=== PATIENT | female | born 1965 | race Caucasian/White ===

== ENCOUNTER 2023-09-18 06:10 | Day surgery (SDC) | payer MEDICARE, OTHER, SELFPAY ==
[2023-09-14 15:55] VITALS: BMI 49.1
[2023-09-18] VITALS (8 sets, daily range): BP systolic 124–165; BP diastolic 53–81; BMI 49.1
[2023-09-18 06:58] LABS: Glucose - Point of Care 163 mg/dl (70-99)
[2023-09-18 08:48] LABS: Glucose - Point of Care 184 mg/dl (70-99)
== END 2023-09-18 10:34 ==
LOC: SDS 06:10
PROVIDERS: ATTENDING PHYSICIAN Urology
DX: N31.9 Neuromuscular dysfunction of bladder, unspecified (principal); R33.9 Retention of urine, unspecified
CPT/HCPCS: 51040; 82962

== ENCOUNTER 2024-07-26 17:44 | Inpatient (IN) | payer MEDICARE, OTHER, SELFPAY ==
[2024-07-26] VITALS (21 sets, daily range): BP systolic 90–144; BP diastolic 37–73; BMI 50.7
[2024-07-26 14:02] LABS: Hematocrit 22.4 % (37.0-47.0); Hemoglobin 7.2 g/dL (12.0-16.0); Mean Corp Hgb Conc. 32.1 g/dL (33.0-37.0); Mean Corpuscular Hgb 26.9 pg (27.0-31.0); Mean Corpuscular Volume 83.6 fL (81.0-99.0); Platelet Count 170 10^3/uL (130-400); Red Blood Cell Count 2.68 10^6/uL (4.20-5.40); White Blood Cell Count 10.1 10^3/uL (4.8-10.8)
[2024-07-26 14:12] LABS: ALT (SGPT) 27 U/L (0-35); AST (SGOT) 65 U/L (14-36); Albumin 2.7 g/dl (3.5-5.0); Alkaline Phosphatase 190 U/L (38-126); Blood Urea Nitrogen 68 mg/dl (7-17); Calcium 8.3 mg/dl (8.4-10.2); Carbon Dioxide 23 mmol/L (22-30); Chloride 101 mmol/L (98-107); Estimated Creatinine Clearance 25 ml/min; Glucose 97 mg/dl (70-99); Lactic Acid 0.7 mmol/L (0.7-2.0); Sodium 134 mmol/L (135-145); Total Bilirubin 0.7 mg/dl (0.2-1.3); Total Protein 5.9 g/dl (6.3-8.2); eGFR 13.95
[2024-07-26 14:17] LABS: % Basophils 0.3 % (0-2); % Eosinophils 0.7 % (0-6); % Immature Granulocytes 0.4 % (0-0.5); % Lymphocytes 9.3 % (20.5-51.1); % Monocytes 8.8 % (1.7-9.3); % Neutrophils 80.5 % (42.2-75.2); Absolute Eosinophils 0.1 10^3/uL (0-0.7); Absolute Lymphocytes 0.9 10^3/uL (1.2-3.4); Absolute Monocytes 0.9 10^3/uL (0.1-0.6); Absolute Neutrophils 8.2 10^3/uL (1.4-6.5); Nucleated Red Blood Cells % 0 %
[2024-07-26] MEDS: NSS 1000 IV ×2 (15:12→18:54)
[2024-07-26] MEDS: MAXIPIME 2000 MG IV (15:15)
--- NOTE | 2024-07-26 15:32 | ED.GENMED ---
History of Present Illness
General
Chief Complaint: Skin Surface Trauma
Time Seen by Provider: 07/26/24 13:41
History of Present Illness
History of Present Illness:
58-year-old female with history of neurogenic bladder status post suprapubic, chronic CHF, stage III CKD, GERD, conversion disorder, morbid obesity, type 2 diabetes/insulin-dependent, and status post left BKA presents to the emergency department for
evaluation of hypotension and fatigue. Coming from [facility]. Patient offers no complaints on arrival, she is sleeping but easily aroused and fully oriented
Review of Systems
Review of Systems
Allergies reviewed?: Yes
All Other Systems: ROS reviewed and negative except as documented in HPI and ROS
Phy Exam
Physical Exam
Physical Exam:
GEN: Diaphoretic, ill-appearing but no acute distress
Eyes: PERRLA, EOMs intact, no scleral icterus
HENT: NCAT, oral mucosa dry
Lungs: CTAB, no wheezes, rales, rhonchi, normal chest wall excursion
Cardiac: RRR, no M/R/G, no peripheral edema. Radial pulses 2+ bilat
Abdomen: Morbid obesity limits exam, generally soft abdomen, suprapubic in place
Rectal: Scant brown stool in the rectal vault, heme-negative
Neuro: AO x 3, moves all extremities freely
MSK: No gross deformity or ecchymosis. No edema. No digital clubbing. Status post left BKA. Massive edema and erythema with warmth to the right lower extremity predominantly lower leg but extends toward the medial thigh
Skin: No rashes, petechiae. Diaphoretic
Psych: Calm, cooperative, proper hygiene
Sepsis
Sepsis Screening
Sepsis Assessment: Severe Sepsis
Sepsis Screening: Hypotension and ARF-Creatinine >2.0
Sepsis Screen
Sepsis Screen: Severe Sepsis
Date: 07/26/24
Time: 14:45
Course
Orders/Labs/Results
Orders:
Orders
07/26/24 13:41
Chauhan Placement- Treatment ONCE
Reason for insertion: Chronic Chauhan on Admit
0.9% Sodium Chloride 1000 ml [Nss] 1,000 ml IV BOLUS
Cefepime HCl [Maxipime] 2,000 mg IV NOW STA
07/26/24 13:42
Urinalysis Reflex To Culture Urgent
07/26/24 13:50
Complete Blood Count/With Diff Urgent
Comprehensive Metabolic Panel Urgent
Lactic Acid Q4H
Comment: CANCEL 2nd LACTIC ACID IF 1st LACTIC ACID IS LESS THAN 2
Blood Culture Q30M
SHAISTA Source: Blood/Venous
Specimen Description:
07/26/24 13:52
Blood Culture Q30M
SHAISTA Source: Blood/Venous
Specimen Description:
07/26/24 14:25
Vancomycin [Vancocin] 2,000 mg 0.9% Sodium Chloride 500 ml [Nss] 500 ml IV NOW
07/26/24 14:53
CR Chest Portable - 1 View Urgent
Comment:
Reason For Exam: sepsis
Reason Study Needs to be Portable: Other
07/26/24 15:10
CT Abd/pel Without Iv Or Oral Urgent
Comment:
Reason For Exam: sepsis, KIRAN, UTI
07/26/24 15:16
Type+Screen Urgent
07/26/24 15:31
ABO2 Urgent
BBK Wristband Number:
Associate notified that ABO2 has been ordered: [id number]
Date: 07/26/24
Time: 15:27
Clinical Practitioner ID: [id number]
Abnormal Lab Results
07/26/24
13:50
RBC 2.68 L 10^6/uL
(4.20-5.40)
Hgb 7.2 L g/dL
(12.0-16.0)
Hct 22.4 L %
(37.0-47.0)
MCH 26.9 L pg
(27.0-31.0)
MCHC 32.1 L g/dL
(33.0-37.0)
RDW 15.0 H %
(11.5-14.5)
Absolute Neuts (auto) 8.2 H 10^3/uL
(1.4-6.5)
Absolute Lymphs (auto) 0.9 L 10^3/uL
(1.2-3.4)
Absolute Monos (auto) 0.9 H 10^3/uL
(0.1-0.6)
Neutrophils % 80.5 H %
(42.2-75.2)
Lymphocytes % 9.3 L %
(20.5-51.1)
Sodium 134 L mmol/L
(135-145)
BUN 68 H mg/dl
(7-17)
Creatinine 3.6 H mg/dL
(0.6-1.0)
Calcium 8.3 L mg/dl
(8.4-10.2)
AST 65 H U/L
(14-36)
Alkaline Phosphatase 190 H U/L
(38-126)
Total Protein 5.9 L g/dl
(6.3-8.2)
Albumin 2.7 L g/dl
(3.5-5.0)
07/26/24 13:50
07/26/24 13:50
Vital Signs
Initial and Last Documented VS:
Initial Vital Signs
Temp Pulse BP Pulse Ox
99.7 F 84 93/49 93
07/26/24 13:40 07/26/24 13:40 07/26/24 13:40 07/26/24 13:40
Last Documented Vital Signs
Temp Pulse Resp BP Pulse Ox
100.1 F 88 22 103/55 97
07/26/24 15:17 07/26/24 14:45 07/26/24 14:45 07/26/24 14:02 07/26/24 14:30
MDM/Problems Addressed
MDM/Problems Addressed:
58-year-old female arrives from nursing facility due to hypotension and diaphoresis. She is found to have a low-grade fever by rectal temp, markedly purulent urine present in suprapubic tube. I attempted to replace the suprapubic at the bedside
however was unable to pass, may be a product of the tract not being overly mature as it was just placed in October. I discussed this with urology who recommended placement of urethral Chauhan for the time being and they will consult inpatient. Chest
x-ray suggestive of a left lower lobe airspace disease, also with signs of massive cellulitis of the right lower extremity, given these findings we will treat with broad-spectrum IV antibiotics. She is also noted to be anemic with heme-negative
stool, not on blood thinners. Unclear baseline as well. Lastly she is noted to have acute renal failure, does have known CKD but again with unknown baseline we will treat this as an KIRAN in the setting of sepsis/hypovolemia, hypotension improved
with IV fluid resuscitation. record request sent to [facility] as patient indicates this is where she has gotten her care previously.
*Critical Care Note
Total Time (30-74mins, 75-104mins- exclusive of procedures): Not Applicable
ED Attending Note
-
Portions of this chart may have been created with voice recognition software.� Occasional wrong word or��sound alike� substitutions may have occurred due to the inherent limitations of voice recognition software.
Discharge Plan
Departure
Patient Disposition: Admit
Date of Disposition: 07/26/24
Time of Disposition: 15:39
Admit to: IMU
Presentation/result/management discussed w/ accepting MD/DO: Hospitalist
Discharge Problem:
Cellulitis of leg, right, Urinary tract infection, Severe sepsis, Acute renal failure, Acute anemia
Prescriptions:
No Action
acetaminophen 325 mg Tablet
650 mg PO Q6HPRN PRN (Reason: mild pain)
atorvastatin 20 mg Tablet
20 mg PO DAILY
cyanocobalamin (vitamin B-12) 100 mcg Tablet
100 mcg PO Q48H
Rx Instructions:
give 1 tab by mouth one time a day every 2 days for supplement
lorazepam [Ativan] 0.5 mg Tablet
0.5 mg PO BID
Rx Instructions:
HOLD FOR SEDATION
bisacodyl [Dulcolax (bisacodyl)] 10 mg Suppository
10 mg NM DAILYPRN PRN (Reason: if n bm aftr mom)
Rx Instructions:
insert 1 suppository rectally as needed for constipation once if MOM ineffective
Fleet Enema 19-7 gram/118 mL Enema
118 ml NM DAILYPRN PRN (Reason: if no bm aftr dulcolax)
Rx Instructions:
Insert 1 each rectally as needed for constipation once if Dulcolax ineffective as per facility policy
albuterol sulfate 90 mcg/actuation Hfa Aerosol Inhaler
1 inh INHALATION R Q4HPRN PRN (Reason: SOB/Wheeze)
duloxetine 30 mg Capsule,Delayed Release(Dr/Ec)
90 mg PO DAILY
Rx Instructions:
30mg+60mg=90mg daily
Fiasp FlexTouch U-100 Insulin 100 unit/mL (3 mL) Insulin Pen
1 sliding scale dose SC AC
Rx Instructions:
if 150-200=2 units call MD if BS less than 60; 201-250=4 units; 251-300=6 units; 301-350=8 units; 351-400=10 units. Call MD if BS more than 400, subcutaneously with meals for DM
lamotrigine 150 mg Tablet
150 mg PO BID
levetiracetam 500 mg Tablet
500 mg PO Q12H
loperamide 2 mg Tablet
2 mg PO Q6HPRN PRN (Reason: diarrhea)
tramadol 50 mg Tablet
50 mg PO Q8HPRN PRN (Reason: Moderate Pain)
Rx Instructions:
Document all NON-Pharmacological Intervention done prior to administration.
guaifenesin [Robitussin Mucus-Chest Congest] 100 mg/5 mL Liquid
200 mg PO Q6HPRN PRN (Reason: congestion;cough)
Rx Instructions:
Give 10ml PO, Q6HPRN for congestion;cough
magnesium hydroxide [Milk of Magnesia] 400 mg/5 mL Suspension
2,400 mg PO DAILYPRN PRN (Reason: if no bm by 3rd day)
Rx Instructions:
1200MG/15ML
ONCE IF NO BM x 3days
ondansetron 4 mg Tablet,Disintegrating
4 mg PO Q6HPRN PRN (Reason: N/V)
alum-mag hydroxide-simeth [Maalox Maximum Strength] 400-400-40 mg/5 mL Suspension
30 ml PO Q8HPRN PRN (Reason: Bloating, Gas)
insulin asp prt-insulin aspart [Novolog Mix 70-30FlexPen U-100] 100 unit/mL (70-30) Insulin Pen
14 unit SC BID
melatonin 10 mg Tablet
10 mg PO HS
Theragen Tablet
1 tab PO DAILY
lisinopril 10 mg Tablet
10 mg PO DAILY
ammonium lactate [AmLactin] 12 % Cream
1 applic TOPICAL HS
gabapentin 100 mg Capsule
200 mg PO TID
Referrals:
UNKNOWN - PT DOES,NOT KNOW [Family Provider] -
Interventions
Interventions:
*Risk Screen - Suicide Last Done: 07/26/24 13:40
*General Assessment Last Done: 07/26/24 13:40
*Neglect/Abuse Screening Last Done: 07/26/24 13:40
*ED- Fall Risk Assessment Last Done: 07/26/24 13:40
*ED COVID-19 Vaccine History Last Done: 07/26/24 14:09
ED-Skin Assessment Last Done: 07/26/24 13:40
Discharge Date and Time
Print Language: VIETNAMESE
[2024-07-26] MEDS: VANCOCIN 540 MG IV (15:39)
--- NOTE | 2024-07-26 16:10 | HPS.HSE ---
Family Physician
-
Family Physician: NOT KNOW UNKNOWN - PT DOES
Chief Complaint
-
Lethargic, cough right lower extremity erythema
History of Present Illness
58-year-old female from [facility] presenting with hypotension and fatigue and dry cough. She is extremely lethargic she falls asleep during exam however she is oriented x 3. She states she has been in [facility]
since April 2021 post left BKA January 2021 at [facility]. She normally goes to [facility] however was brought to [place] today. She has past medical history of DM2 insulin-dependent, status post left BKA January
2020, class III obesity�BMI 50.6 kg, chronic bedbound status uses slide board to transfer to wheelchair occasionally, neurogenic bladder with chronic suprapubic catheter, chronic CHF, ? stage III CKD, GERD, conversion disorder/depression/seizures,
sleep apnea noncompliant CPAP
Medical History
Past Medical History
Past Medical History: Reports Other
Additional Past Medical History:
DM2 insulin-dependent
status post left BKA January 2021
class III obesity�BMI 50.6 kg
chronic bedbound status uses slide board to transfer to wheelchair occasionally
neurogenic bladder with chronic suprapubic catheter
chronic CHF likely diastolic
? stage III CKD
GERD
conversion disorder/depression/seizures
Sleep apnea noncompliant CPAP
Past Surgical History: Reports Other (Unknown surgical history)
Social History
Tobacco: Non-smoker
Alcohol: None
Drug: None
Personal: Single
Living: Snf ([facility])
Employment: Disabled
Family History
Family History: Other (Mother living is at assisted unsure medical problems)
Allergies / Home Medications
Allergies reflects when Allergies were last updated in [facility].
Home Medications with original date entered in [facility]
Allergy/Medication List:
Allergies
Allergy/AdvReac Type Severity Reaction Status Date / Time
No Known Allergies Allergy Verified 09/17/23 08:35
Home Medications
acetaminophen 325 mg tablet 650 mg PO Q6HPRN PRN mild pain 09/17/23
albuterol sulfate 90 mcg/actuation aerosol inhaler 1 inh inhalation R Q4HPRN PRN SOB/Wheeze 09/17/23
aluminum-mag hydroxide-simethicone 400 mg-400 mg-40 mg/5 mL oral susp (Maalox Maximum Strength) 30 ml PO Q8HPRN PRN Bloating, Gas 09/17/23
atorvastatin 20 mg tablet 20 mg PO DAILY HLD 09/17/23
bisacodyl 10 mg rectal suppository (Dulcolax (bisacodyl)) 10 mg NM DAILYPRN PRN if n bm aftr mom 09/17/23
cyanocobalamin (vitamin B-12) 100 mcg tablet 100 mcg PO Q48H Supplement 09/17/23
duloxetine 30 mg capsule,delayed release 90 mg PO DAILY Depression 09/17/23
guaifenesin 100 mg/5 mL oral liquid 200 mg PO Q6HPRN PRN congestion;cough 09/17/23
insulin aspar prot-insulin aspart 100 unit/mL (70-30) subcutaneous pen (Novolog Mix 70-30FlexPen U-100) 14 unit SC BID DM 09/17/23
insulin aspart (niacinamide)(U-100) 100 unit/mL(3 mL) subcutaneous pen (Fiasp FlexTouch U-100 Insulin) 1 sliding scale dose SC AC DM 09/17/23
lamotrigine 150 mg tablet 150 mg PO BID Seizures 09/17/23
levetiracetam 500 mg tablet 500 mg PO Q12H Seizures 09/17/23
loperamide 2 mg tablet 2 mg PO Q6HPRN PRN diarrhea 09/17/23
lorazepam 0.5 mg tablet (Ativan) 0.5 mg PO BID Anxiety 09/17/23
magnesium hydroxide 400 mg/5 mL oral suspension (Milk of Magnesia) 2,400 mg PO DAILYPRN PRN if no bm by 3rd day 09/17/23
melatonin 10 mg tablet 10 mg PO HS insomnia 09/17/23
ondansetron 4 mg disintegrating tablet 4 mg PO Q6HPRN PRN N/V 09/17/23
sodium phosphates 19 gram-7 gram/118 mL enema (Fleet Enema) 118 ml NM DAILYPRN PRN if no bm aftr dulcolax 09/17/23
tramadol 50 mg tablet 50 mg PO Q8HPRN PRN Moderate Pain 09/17/23
ammonium lactate 12 % topical cream 1 applic topical HS rle 07/26/24
gabapentin 100 mg capsule 200 mg PO TID 07/26/24
lisinopril 10 mg tablet 10 mg PO DAILY 07/26/24
therapeutic multivitamin 1 tab PO DAILY 07/26/24
Review of Systems
-
Constitutional: Reports Fever and Fatigue; Denies Chills
EENT: Denies Sore Throat or Runny Nose
Respiratory: Reports Cough; Denies Trouble Breathing
Cardiac: Denies Chest Pain, Diaphoresis, Palpitations or Syncope
Abdomen/GI: Denies Abdominal Pain, Nausea, Vomiting, Diarrhea, Constipated or Bloody Stools
: Reports Suprapubic Tube (Present on admission)
Musculoskeletal: Reports Edema (Edema +3/erythema right upper thigh to right lower extremity on chronic venous stasis dermatitis, left BKA no erythema or edema); Denies Joint Pain
Skin: Denies Itching or Rash
Neurological: Reports Weakness (Generalized); Denies Dizzy or Headache
Endocrine: Reports No Symptoms
Hematologic/Lymphatic: Reports No Symptoms
Psych: Reports Calm
Physical Exam
Vital Signs
Vital Signs
Temp Pulse Resp BP Pulse Ox
100.1 F 82 14 102/54 99
07/26/24 15:17 07/26/24 16:00 07/26/24 16:00 07/26/24 16:00 07/26/24 16:00
Physical Exam
General: Conversant, Morbidly Obese and Other (Temp 100.1); No Chills
HEENT: NormoCephalic, Anicteric, PERRLA, [place] Conjunctivae and No Ptosis
Respiratory: Clear; No Wheezes, Rales or Rhonchi
Cardiac: S1/S2, Regular Rhythm and Peripheral Edema (Edema +3/erythema right upper thigh to right lower extremity on chronic venous stasis dermatitis, left BKA no erythema or edema); No Murmur, Rub or Gallop
GI: Soft, Non Tender, Non Distended, Normal Bowel Sounds and Other (Unable to palpate liver and spleen due to protuberant abdomen)
Genito-urinary: Deferred by me and Tien (Urethral catheter placed, ER was unable to replace suprapubic catheter be removed urology is aware)
Musculoskeletal: No Clubbing, No Cyanosis and Edema, Right Lower Extremity (Edema +3/erythema right upper thigh to right lower extremity on chronic venous stasis dermatitis, left BKA no erythema or edema); No Edema, Left Upper Extremity, Edema,
Right Upper Extremity or Edema, Left Lower Extremity
Skin: Warm and Dry
Neuro: Cranial Nerves Intact, No Sensory Deficits and Other (Extremely lethargic however does awaken is oriented x 3 but falls asleep during questions); No Slurred Speech, Facial Droop or Tremors
Psych: Calm
Laboratory Results
-
07/26/24 13:50
07/26/24 13:50
Laboratory Results
Lactic Acid Cancelled 07/26/24 17:45
Total Bilirubin 0.7 mg/dl (0.2-1.3) 07/26/24 13:50
AST 65 U/L (14-36) H 07/26/24 13:50
ALT 27 U/L (0-35) 07/26/24 13:50
Alkaline Phosphatase 190 U/L (38-126) H 07/26/24 13:50
Impression/Plan
-
Impression/plan:
Admit to IMU
#Right lower extremity cellulitis concern for impending sepsis
Temp 100.1 F, HR 88, 93/49
Lactic acid 1.7
-Patient given 1 L IV NSS in ER will need additional fluids for acute hypotension
-IV cefepime, IV vancomycin given in er
-IV vancomycin ,IV Zosyn IV doxycycline-renal dose
-Consult ID
- Follow CBC, CMP
#Acute hypotension likely secondary to septic shock
/> 102/54 > 92/52
can get 3000 for ideal body weight 97 kg-current weight is 142.3 kg
-Hold lisinopril
-1 L bolus IV NSS given in ER continued from EMS, give additional 1 L bolus NSS due to mild interstitial and cardiogenic pulm edema
will give additional 3 rd liter IV NSS
- levophed Iv as needed keep MAP greater than 60
# Septic shock secondary to Left lower lobe pneumonia vs RLE cellulitis
97% RA Temp 100.1 F, HR 88, 93/49
Lactic acid 1.7
Pro-Chilo 12.12
- IV cefepime, IV vancomycin
-Follow CBC, CMP
CXR: 1. Large dense left lower lobe airspace consolidation containing air bronchograms. Diagnostic possibilities are (1) LEFT LOWER LOBE PNEUMONIA or (2) atelectasis.
2. Moderate elevation of the right hemidiaphragm with a mild amount of subpleural airspace opacity in the right lower lung.
3. Moderate enlargement of the cardiac silhouette with suggestion of mild interstitial and alveolar cardiogenic pulmonary edema.
#Acute renal failure/CKD unknown stage and baseline
Creat 3.6/bun 68
Records being obtained from [facility]
-Check mag, Phos, UA DE ALCHOLIZER
- Monitor Chauhan output urethral
- Consult urology as suprapubic catheter was not able to be reinserted in ER
CT abdomen pelvis ordered in ER pending on admission
#Normocytic anemia ? Underlying CKD
Hgb 7.2
Check type and screen
-Blood consent obtained and scanned in chart
-Check iron panel, B12, folate
- ER obtaining records from [facility]
- Continue B12 100 mcg p.o. every 48 hours
#Acute on chronic CHF-likely diastolic
Chronic peripheral edema RLE/left BKA
I/O, daily weight
#Chronic indwelling suprapubic catheter secondary to neurogenic bladder
- In ER was unable to exchange
- ER spoke with on-call urology recommended placing urethral Chauhan catheter
- Will check urinalysis with reflex culture
- Continue IV Zosyn, doxycycline, vancomycin renal dose
-Consult Dr brady
DM 2
Accu-Cheks with SSI, check HgbA1c
- Hold NovoLog 70/30 14 units SQ twice daily
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
- Wears shaper but does not have prosthetic or plan for 1
- Continue gabapentin 200 mg 3 times daily(CrCl 25), continue tramadol 50 mg every 8 hours as needed pain, Tylenol mild pain
#Conversion disorder/seizures
#Depression
-Continue duloxetine 90 mg daily, Lamictal 150 mg p.o. twice daily, Keppra 500 mg p.o. every 12 hours
- Continue Ativan 0.5 mg p.o. twice daily hold for extreme lethargy
#Chronic bedbound status uses slide board to transfer to wheelchair occasionally
Consult PT
#GERD
- No reported meds
HLD
- Continue atorvastatin 20 mg daily
#Sleep apnea
- Noncompliant with CPAP
- Recommended patient wear CPAP due to her insomnia and frequent falling asleep during the day
Insomnia
Hold melatonin 10 mg at bedtime due to lethargy
DVT prophylaxis
Subcu heparin
Full code patient's emergency contact is her mother next of kin Denise [phone] in a [facility]
[2024-07-26 16:31] LABS: Iron 25 ug/dl (37-170)
[2024-07-26 16:33] LABS: Percent Saturation 12 % (20-50); Total Iron Binding Capacity 198 ug/dl (265-497)
[2024-07-26 16:56] LABS: Urine Albumin 4+ (Neg - Trace); Urine Bilirubin Negative (Negative); Urine Character Cloudy (Clear); Urine Color Yellow; Urine Glucose 1+ (Negative); Urine Ketone Negative (Negative); Urine Leukocyte 1+ (Negative); Urine Nitrite Negative (Negative); Urine Occult Blood 3+ (Negative); Urine Specific Gravity 1.015 (<1.030); Urine Urobilinogen 1+ (Neg - 1+)
[2024-07-26 17:12] LABS: Urine Squamous Cell 0-2 /LPF (Few)
[2024-07-26 17:13] LABS: Urine White Cell 80-90 /HPF (0-5)
[2024-07-26 17:14] LABS: Urine Bacteria Many (Negative)
[2024-07-26 17:30] LABS: Procalcitonin 12.12 ng/ml (0.0-0.25)
--- NOTE | 2024-07-26 18:16 | W.PN.UPDATE ---
Update Note
Progress Note Update
This note serves as an addendum to the H&P by TONIA Escobar, on July 26, 2024.
History of Presenting Illness
58-year-old female from [facility], with past medical history of DM2 insulin-dependent, status post left BKA January 2021, class III obesity�BMI 50.6 kg, chronic bedbound status uses slide board to transfer to wheelchair
occasionally, neurogenic bladder with chronic suprapubic catheter, chronic CHF, ? stage III CKD, GERD, conversion disorder/depression/seizures, sleep apnea noncompliant with CPAP
Vital Signs
Temp 100.1 F
HR normal
Hypotensive
RR okay
Saturating oxygen well on room air
Physical Exam
General: Not in acute distress
HEENT: Normocephalic
Respiratory: Clear to Auscultation Bilaterally
Cardiac: S1/S2, Regular Rhythm
GI: Soft, Non Tender, Non Distended, Normal Bowel Sounds
Genito-urinary: Chauhan (Urethral catheter placed, ER was unable to replace suprapubic catheter be removed urology is aware)
Musculoskeletal: No Cyanosis. Edema, Right Lower Extremity (Edema +3/erythema right upper thigh to right lower extremity on chronic venous stasis dermatitis, left BKA no erythema or edema)
Skin: Warm and Dry
Neuro: Lethargic but is arousable, oriented x 3, falls asleep during questions
Psych: Calm
Assessment/Plan
#Septic shock secondary to Left lower lobe pneumonia, RLE cellulitis and UTI
#Moderate subcutaneous edema in the lateral right hip and proximal right thigh
- MAP in the low 60s
- Patient given 2 L NSS bolus in the ER, 3rd bolus IV fluids ordered -- confirmed this with TONIA Escobar
- IV cefepime, IV vancomycin given in er
- IV vancomycin, IV Zosyn, IV Clindamycin and IV doxycycline (to cover for atypical respiratory organisms) - renally dose
- Less likely to be necrotizing soft tissue infection with no crepitus or pain -- cover with Clindamycin for now in case
- Appreciate ID
- ER ordered procal which is significantly elevated
- Follow cultures
- Check legionella and strep
- Consult ID
- Follow CBC, CMP
- Hold home antihypertensives
- Levophed ordered
- Monitor patient in the IMU
#Acute renal failure on suspected CKD Stage 3b
- Creatinine 3.6/bun 68
- Records to be obtained from [facility]
- Monitor Chauhan output urethral
- Consult urology as suprapubic catheter was not able to be reinserted in ER
- CT abdomen pelvis ordered in ER and results noted
#Normocytic anemia
- Check type and screen
- Blood consent obtained in the ER and scanned in chart
- Check iron panel, B12, folate
- ER obtaining records from [facility]
- Continue B12 100 mcg p.o. every 48 hours
#Acute on chronic CHF-likely diastolic
Chronic peripheral edema RLE/left BKA
I/O, daily weight
#Chronic indwelling suprapubic catheter secondary to neurogenic bladder
- In ER was unable to exchange
- ER spoke with on-call urology recommended placing urethral Chauhan catheter
- Will check urinalysis with reflex culture
- Continue IV Zosyn, vancomycin renal dose
- Consult Urology
#Type 2 Diabetes Mellitus
Accu-Cheks with SSI, check HgbA1c
- Hold NovoLog 70/30 14 units SQ twice daily
#Hypertension
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
- Continue gabapentin - renally dosed, continue tramadol 50 mg every 8 hours as needed pain, Tylenol mild pain
#Conversion disorder with seizures/convulsions
#Depression
-Continue duloxetine 90 mg daily, Lamictal 150 mg p.o. twice daily, Keppra 500 mg p.o. every 12 hours
-Continue Ativan 0.5 mg p.o. twice daily hold for extreme lethargy
#History of Cognitive Communication Deficit
#History of Aphasia
#Chronic bedbound status uses slide board to transfer to wheelchair occasionally
Consult PT
#GERD
- No reported meds
#Mild hepatosplenomegaly on CT imaging
#Moderate fecal material in the sigmoid colon and rectum on CT
#Mild to moderate right inguinal lymphadenopathy on CT
#Hyperlipidemia
- Continue atorvastatin 20 mg daily
#Sleep apnea
- Noncompliant with CPAP
- Recommended patient wear CPAP due to her insomnia and frequent falling asleep during the day
#Insomnia
Hold melatonin 10 mg at bedtime due to lethargy
#Muscle Weakness History
#History of Osteomyelitis
#Morbid Obesity
DVT Prophylaxis:
Subcu heparin
Full code patient's emergency contact is her mother next of kin Denise [phone] in a Critical access hospital
[2024-07-26 18:27] LABS: Magnesium 1.9 mg/dl (1.6-2.3); Phosphorus 5.1 mg/dl (2.5-4.5)
[2024-07-26] MEDS: CLEOCIN 50 IV (20:11)
[2024-07-26 21:12] LABS: Folate 16.6 ng/ml (2.76-20); Vitamin B12 545 pg/ml (239-931)
--- NOTE | 2024-07-26 21:42 | PHA.VAN.IN ---
Assessment
- Assessment
Renal Function: Unknown baseline
Plan
- Plan
Initial / Loading Dose: 2000mg - 07/26 15:39
Maintenance Regimen: dosing by level
Monitoring: random 07/27 0600
MRSA Screen: Ordered per protocol
Pharmacokinetics Vancomycin I
- -
Patient Age: 58
Patient Sex: Female
Vancomycin Day #: 1
Indication: Pulmonary/Respiratory
Requesting Provider: Bryant Paulino
Pertinent Antimicrobial Allergies:
NKDA
Height / Weight:
Height 5 ft 6 in
Actual Weight 142.3 kg
Pertinent Past Medical History: BMI ~50, L BKA, DM 2, mobility impairment
- Vital Signs / Lab Results
Temp Pulse Resp BP Pulse Ox
100.1 F 78 12 94/38 94
07/26/24 15:17 07/26/24 21:15 07/26/24 21:15 07/26/24 21:00 07/26/24 21:15
Lab Results - Hematology
07/26/24
13:50
WBC 10.1
Lab Results - Chemistry
07/26/24
13:50
BUN 68 H
Creatinine 3.6 H
Estimated Creat Clear 25
Albumin 2.7 L
07/26/24 07/26/24
13:50 17:45
Lactic Acid 0.7 Cancelled
Lab Results - Urine
07/26/24
16:43
Urine Nitrite (Reflex) Negative
Leukocyte Esterase Rfl 1+ A
Urine WBC (Reflex) 80-90 A
Ur Squamous Epith Cells 0-2
Urine Bacteria (Reflex) Many A
[2024-07-26] MEDS: ATIVAN PO (21:53)
[2024-07-26] MEDS: KEPPRA 500 MG PO (22:03)
[2024-07-26] MEDS: NEURONTIN 200 MG PO (22:03)
[2024-07-26] MEDS: HEPARIN 5000 UNITS SC (22:05)
[2024-07-26] MEDS: LEVOPHED 250 IV (22:35)
[2024-07-26] MEDS: VIBRAMYCIN 260 MG IV (23:10)
[2024-07-26] MEDS: LAMICTAL 150 MG PO (23:33)
[2024-07-27] VITALS (30 sets, daily range): BP systolic 78–148; BP diastolic 39–99; BMI 49.5; BMI 49.2
[2024-07-27 00:20] LABS: Glucose - Point of Care 107 mg/dl (70-99)
[2024-07-27] MEDS: CLEOCIN 50 IV (04:03)
[2024-07-27] MEDS: ZOSYN 50 IV ×2 (05:27→11:31)
[2024-07-27 06:17] LABS: Hematocrit 22.2 % (37.0-47.0); Mean Corp Hgb Conc. 31.5 g/dL (33.0-37.0); Mean Corpuscular Hgb 26.7 pg (27.0-31.0); Mean Corpuscular Volume 84.7 fL (81.0-99.0); Mean Platelet Volume 9.3 fL (7.4-10.4); Platelet Count 167 10^3/uL (130-400); Red Blood Cell Count 2.62 10^6/uL (4.20-5.40); Red Cell Dist. Width 15.5 % (11.5-14.5); White Blood Cell Count 8.7 10^3/uL (4.8-10.8)
[2024-07-27 06:18] LABS: Vancomycin Random 18.5 ug/ml
[2024-07-27 06:29] LABS: ALT (SGPT) 25 U/L (0-35); AST (SGOT) 50 U/L (14-36); Albumin 2.5 g/dl (3.5-5.0); Alkaline Phosphatase 194 U/L (38-126); Blood Urea Nitrogen 67 mg/dl (7-17); Carbon Dioxide 17 mmol/L (22-30); Chloride 105 mmol/L (98-107); Estimated Creatinine Clearance 25 ml/min; Glucose 107 mg/dl (70-99); Potassium 3.9 mmol/L (3.5-5.1); Sodium 136 mmol/L (135-145); Total Bilirubin 0.7 mg/dl (0.2-1.3); Total Protein 5.6 g/dl (6.3-8.2); eGFR 13.95
[2024-07-27 07:08] LABS: % Basophils 0.5 % (0-2); % Eosinophils 2.3 % (0-6); % Immature Granulocytes 0.6 % (0-0.5); % Lymphocytes 8.9 % (20.5-51.1); % Monocytes 8.4 % (1.7-9.3); % Neutrophils 79.3 % (42.2-75.2); Absolute Eosinophils 0.2 10^3/uL (0-0.7); Absolute Immature Granulocytes 0.1 10^3/uL (0-0.05); Absolute Lymphocytes 0.8 10^3/uL (1.2-3.4); Absolute Monocytes 0.7 10^3/uL (0.1-0.6); Absolute Neutrophils 6.9 10^3/uL (1.4-6.5); Nucleated Red Blood Cells % 0 %
[2024-07-27 07:42] LABS: Glucose - Point of Care 103 mg/dl (70-99)
[2024-07-27] MEDS: NOVOLOG FLEXPEN-LOW RESISTANCE SC ×2 (07:55→11:38)
[2024-07-27] MEDS: ATIVAN 0.5 MG PO (07:59)
[2024-07-27] MEDS: CYMBALTA DELAYED RELEASE 90 MG PO (07:59)
[2024-07-27] MEDS: LIPITOR 20 MG PO (07:59)
[2024-07-27] MEDS: NEURONTIN 200 MG PO ×3 (07:59→20:24)
[2024-07-27] MEDS: THERAGRAN 1 TABLET PO (07:59)
[2024-07-27] MEDS: KEPPRA 500 MG PO ×2 (07:59→20:24)
[2024-07-27] MEDS: VITAMIN B-12 100 MCG PO (07:59)
[2024-07-27] MEDS: LAMICTAL 150 MG PO ×2 (07:59→20:24)
[2024-07-27] MEDS: HEPARIN 5000 UNITS SC ×2 (08:00→20:24)
--- NOTE | 2024-07-27 08:10 | W.PN.HOSP.TC ---
Addendum entered and electronically signed by Demarcus Beard MD 07/27/24 17:47:
Was told patient takes prn Ativan at home (not scheduled) so changed it to reflect correct home prn dosing.
Original Note:
Today's Communication/Plan
-
Continue antibiotics
AM lab/monitor renal function
See plan
Assessment / Plan
Assessment / Plan
Physical Exam
General: Not in acute distress
HEENT: Normocephalic
Respiratory: Clear to Auscultation Bilaterally
Cardiac: S1/S2, Regular Rhythm
GI: Soft, Non Tender, Non Distended, Normal Bowel Sounds
Genito-urinary: Chauhan (Urethral catheter placed, ER was unable to replace suprapubic catheter be removed urology is aware)
Musculoskeletal: No Cyanosis. Edema, Right Lower Extremity (Edema +3/erythema right upper thigh to right lower extremity on chronic venous stasis dermatitis, left BKA no erythema or edema)
Skin: Warm and Dry
Neuro: AAOx3.
Psych: Calm. Good Insight.
Assessment/Plan
58-year-old female from [facility], with past medical history of DM2 insulin-dependent, status post left BKA January 2021, class III obesity�BMI 50.6 kg, chronic bedbound status uses slide board to transfer to wheelchair
occasionally, neurogenic bladder with chronic suprapubic catheter, chronic CHF, ? stage III CKD, GERD, conversion disorder/depression/seizures, sleep apnea noncompliant with CPAP who presented to the ED on July 26 due to hypotension, weakness, and
dry cough. Found to be lethargic.
#Septic shock secondary to Left lower lobe pneumonia, RLE cellulitis and possible UTI
#Moderate subcutaneous edema in the lateral right hip and proximal right thigh
#Lethargy - IMPROVED
- Levophed was given from 10 PM on 07/26/24 to 4 AM on 07/27/24 --> weaned off
- Appreciate ID: Vancomycin, Zosyn, Clindamycin and Doxycycline simplified to Rocephin and Doxycycline
- ER ordered procal which was significantly elevated
- Follow cultures
- Legionella and strep negative
- Monitor patient in the IMU for now
#Acute renal failure on suspected CKD Stage 3b
- Could be post obstructive as suprapubic catheter was clogged on admission
- Creatinine 3.6/bun 68 --> improved slightly
- Records to be obtained from [facility]
- Monitor Chauhan output urethral
- Consulted urology as suprapubic catheter was not able to be reinserted in ER
- CT abdomen pelvis ordered in ER and results noted
- If renal function not improving, will need nephrology consult
#Normocytic anemia
- Checked type and screen
- Blood consent obtained in the ER and scanned in chart on 07/26/24
- Check iron panel, B12, folate
- ER obtaining records from [facility]
- Continue B12 100 mcg p.o. every 48 hours
#Acute on chronic CHF-likely diastolic
Chronic peripheral edema RLE/left BKA
I/O, daily weight
#Chronic indwelling suprapubic catheter secondary to neurogenic bladder
- In ER was unable to exchange suprapubic catheter
- ER spoke with on-call urology recommended placing urethral Chauhan catheter
- Urethral catheter placed on admission w/ satisfactory UOP
- Maintain urethral catheter to drainage on discharge
- Catheter changes q4 weeks @[place]
- If replacement of SPT desired - will need outpatient urology F/U and discussion of cystoscopy/SPT replacement given anatomical challenges
- Appreciate urology
#Type 2 Diabetes Mellitus
- Continue Accu-Cheks with SSI, checked HgbA1c 8.2%
#Hypertension
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
- Continue gabapentin - renally dosed, continue tramadol 50 mg every 8 hours as needed pain, Tylenol mild pain
#Conversion disorder with seizures/convulsions
#Depression
-Continue duloxetine 90 mg daily, Lamictal 150 mg p.o. twice daily, Keppra 500 mg p.o. every 12 hours
-Continue Ativan 0.5 mg p.o. twice daily hold for extreme lethargy
#History of Cognitive Communication Deficit
#History of Aphasia
#Chronic bedbound status uses slide board to transfer to wheelchair occasionally
Consult PT
#GERD
- No reported meds
#Mild hepatosplenomegaly on CT imaging
#Moderate fecal material in the sigmoid colon and rectum on CT
#Mild to moderate right inguinal lymphadenopathy on CT
#Hyperlipidemia
- Continue atorvastatin 20 mg daily
#Sleep apnea
- Noncompliant with CPAP
- Recommended patient wear CPAP due to her insomnia and frequent falling asleep during the day
#Insomnia
Hold melatonin 10 mg at bedtime due to lethargy
#Muscle Weakness History
#History of Osteomyelitis
#Morbid Obesity
DVT Prophylaxis: Heparin Subq
Code Status: DNR (confirmed with patient -- patient had full decision-making capacity and confirmed DNR status on 07/27/24)
Anticipated Discharge: > 48 hours
Subjective/Interval History
-
Date of Service: July 27, 2024
Patient was seen and examined. She reported feeling better today and was more alert.
Objective Data
-
Labs:
Laboratory Results
07/27/24
05:25
WBC 8.7
Hgb 7.0 L
Hct 22.2 L
Plt Count 167
Sodium 136
Potassium 3.9
Chloride 105
Carbon Dioxide 17 L
BUN 67 H
Creatinine 3.6 H
Glucose 107 H
Calcium 8.0 L
Total Bilirubin 0.7
AST 50 H
ALT 25
Alkaline Phosphatase 194 H
Vital Signs:
Vital Signs
Temp Pulse Resp BP Pulse Ox
97.8 F 80 14 126/68 98
07/27/24 02:00 07/27/24 08:00 07/27/24 08:00 07/27/24 08:00 07/27/24 08:07
I&O
07/26/24 07/27/24 07/28/24
06:59 06:59 06:59
Intake Total 380 / 380
Output Total 300 / 300
Balance 80 / 80
[2024-07-27 08:28] LABS: Glycohemoglobin (HgbA1c) 8.2 % (4.0-5.6)
[2024-07-27] MEDS: VIBRAMYCIN 260 MG IV (09:08)
--- NOTE | 2024-07-27 09:22 | PHA.VAN.FU ---
Vancomycin Assessment / Plan
- Assessment
Renal Function: Stable
WBC's are: Trending Down
In the past 24 hrs, patient has been: Afebrile
Concomitant Antimicrobials: Clindamycin, Doxycycline, and Piperacillin-tazobactam
- Assessment - Therapeutic Drug Monitoring
Random Level: 18.5 ~ 14hrs post Vanc 2000mg
- Dosing Plan
Continue: Dose by level
Dosing by Level: Hold off on dosing today
- Monitoring Plan
Random Level: 07/28 AM
- Follow Up
Pharmacy will continue to follow.
Vancomycin Follow UP
- -
Patient Age: 58
Patient Sex: Female
Vancomycin Day #: 2
Indication: Pulmonary/Respiratory
Requesting Provider: Bryant Paulino
Pertinent Antimicrobial Allergies:
NKDA
Height / Weight:
Height 5 ft 6 in
Actual Weight 138.981 kg
Pertinent Past Medical History: BMI ~50, L BKA, DM 2, mobility impairment
- Vital Signs / Lab Results
Temp Pulse Resp BP Pulse Ox
97.9 F 81 17 124/54 97
07/27/24 08:28 07/27/24 09:00 07/27/24 09:00 07/27/24 09:00 07/27/24 09:00
Lab Results - Hematology
07/26/24 07/27/24
13:50 05:25
WBC 10.1 8.7
Lab Results - Chemistry
07/26/24 07/27/24
13:50 05:25
BUN 68 H 67 H
Creatinine 3.6 H 3.6 H
Estimated Creat Clear
Albumin 2.7 L 2.5 L
07/26/24 07/26/24
13:50 17:45
Lactic Acid 0.7 Cancelled
Lab Results - Urine
07/26/24
16:43
Urine Nitrite (Reflex) Negative
Leukocyte Esterase Rfl 1+ A
Ur Squamous Epith Cells 0-2
Microbiology Results
07/26/24 16:43 Legionella Urinary Antigen - Final
Urine Negative for Legionella pneumophila Serogroup 1 antigen.
A negative result does not rule out the possiblity of
Legionella infection due to other serogroups or species of
Legionella. Clinical correlation is recommended.
Streptococcus pneumoniae Antigen (M - Final
Negative for Streptococcus pneumoniae antigen.
A negative result does not exclude infection with
Streptococcus pneumoniae. Clinical correlation is
recommended.
Therapeutic Drug Monitoring
Random Vancomycin 18.5 ug/ml 07/27/24 05:25
--- NOTE | 2024-07-27 10:40 | CON.ID ---
Consultation
-
Date/Time Consultation Requested: July 26, 2024 1710
Date/Time Consultation Performed: July 27, 2024 1040
Requesting Provider: TONIA Escobar
Performing Provider: Dr. Daria Baez
Reason for Consultation: lower extremity cellulitis and pneumonia
Chief Complaint / Past History
Chief Complaint
Cough, weakness
History of Present Illness
58-year-old female from [facility] with history of diabetes mellitus, CKD 3, left BKA, bedbound overactive bladder with chronic suprapubic catheter who presented to the ED on July 26 due to hypotension, weakness, and dry cough. In the ED
patient very lethargic. She was noted to have erythematous right lower extremity. Chest x-ray shows left base consolidation containing air bronchograms. Patient received vancomycin and cefepime in the ER. She is currently on vancomycin, Zosyn,
IV doxycycline, IV clindamycin. Patient does report cough which is nonproductive. No shortness of breath. Her right leg has always been swollen. She did not notice when the erythema occurred. Positive chills. No nausea vomiting or diarrhea.
No flank pain. She is feeling better today.
Past History
Additional Past Medical History:
Type 2 diabetes
Hypertension
Heart failure
CKD 3B
Conversion disorder/depression/seizures
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
Overactive bladder with suprapubic catheter
Class III obesity BMI 50
Sleep apnea not compliant with CPAP
Bedbound status
Allergy History:
No Known Allergies Allergy (Verified 09/17/23 08:35)
Medications Reviewed: Yes
Current Antibiotics:
Vancomycin
Zosyn
Clindamycin
Doxycycline
Social History
Tobacco: Non-Smoker
Alcohol: None
Drug: None
Personal: Single
Living: [facility] ([facility])
Family History
Family History: Not Pertinent
Review of Systems
Review of Systems
General: Chills and Change in Appetite
HEENT: Negative Sinus Problems, Headache or Pharyngitis
Cardiovascular: Negative Chest Pain or Dyspnea
Respiratory: Cough; Negative Dyspnea or Sputum Production
Gasteroenterology: Negative Nausea, Vomiting or Diarrhea
Genital / Urological: Negative Flank Pain
Endocrine: Weakness
Neurological: Negative Dizziness
All systems: All other systems were reviewed and were negative
Vital Signs
Temp Pulse Resp BP Pulse Ox
97.9 F 81 17 124/54 97
07/27/24 08:28 07/27/24 09:00 07/27/24 09:00 07/27/24 09:00 07/27/24 09:00
Physical Exam
Physical Exam
Constitutional: No Acute Distress, Comfortable and Non-toxic
Head: Other (No frontal or maxillary sinus tenderness)
Eyes: No Conjunctival Hemorrhage and Sclera Anicteric
Cardiovascular: Regular Rate and S1/S2
Pulmonary: Rales (left base crackles)
Gastrointestinal: Soft, Non Tender, Non Distended and Normal Bowel Sounds
Extremities: Edema (RLE 2-3+ edema) and Erythema (pink erythema distal leg; pink erythema from calf to medial thigh to groin; mildly warm)
Neurological: AO x 3
Lab / Diagnostic Study Results
07/27/24 05:25
07/27/24 05:25
Abs Immat Gran (auto) 0.1 10^3/uL (0-0.05) H 07/27/24 05:25
Absolute Neuts (auto) 6.9 10^3/uL (1.4-6.5) H 07/27/24 05:25
Absolute Lymphs (auto) 0.8 10^3/uL (1.2-3.4) L 07/27/24 05:25
Absolute Monos (auto) 0.7 10^3/uL (0.1-0.6) H 07/27/24 05:25
Absolute Basos (auto) 0.0 10^3/uL (0-0.2) 07/27/24 05:25
Immature Gran % 0.6 % (0-0.5) H 07/27/24 05:25
Neutrophils % 79.3 % (42.2-75.2) H 07/27/24 05:25
Lymphocytes % 8.9 % (20.5-51.1) L 07/27/24 05:25
Monocytes % 8.4 % (1.7-9.3) 07/27/24 05:25
Eosinophils % 2.3 % (0-6) 07/27/24 05:25
Basophils % 0.5 % (0-2) 07/27/24 05:25
Lactic Acid Cancelled 07/26/24 17:45
Procalcitonin 12.12 ng/ml (0.0-0.25) H* 07/26/24 16:43
Ur Squamous Epith Cells 0-2 /LPF (Few) 07/26/24 16:43
Microbiology Results
Micro:
07/26/24 16:43 Legionella Urinary Antigen - Final
Urine Negative for Legionella pneumophila Serogroup 1 antigen.
A negative result does not rule out the possiblity of
Legionella infection due to other serogroups or species of
Legionella. Clinical correlation is recommended.
Streptococcus pneumoniae Antigen (M - Final
Negative for Streptococcus pneumoniae antigen.
A negative result does not exclude infection with
Streptococcus pneumoniae. Clinical correlation is
recommended.
07/26/24 22:10 MRSA Screen - Pending
Nose
07/26/24 16:43 Urine Culture - Pending
Urine
07/26/24 13:52 Blood Culture - Pending
Blood/Venous
07/26/24 13:50 Blood Culture - Pending
Blood/Venous
07/26/24 CT a/p: Large dense left lower lobe airspace consolidation containing air bronchograms.
Assessment / Plan
# Acute RLE non-purulent cellulitis.
# LLE pneumonia
# Hypotension resolved
- DC Vanco/Zosyn/clindamycin.
- Convert IV doxycycline to po.
- Simplify to ceftriaxone.
- Darshan-wrap compression RLE.
# DM -uncontrolled
- Tight glucose control.
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
Type 2 diabetes
Hypertension
Heart failure
CKD 3B
Conversion disorder/depression/seizures
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
Overactive bladder with suprapubic catheter
Class III obesity BMI 50
Sleep apnea not compliant with CPAP
Bedbound status
[2024-07-27 11:35] LABS: Glucose - Point of Care 149 mg/dl (70-99)
[2024-07-27] MEDS: STERILE WATER FOR INJECTION 20 ML IV (15:13)
[2024-07-27] MEDS: ROCEPHIN 2000 MG IV (15:13)
--- NOTE | 2024-07-27 15:47 | CONS.URO ---
Consultation
-
Date/Time Consultation Requested: 07/27
Date/Time Consultation Performed: 07/27
Requesting Provider: ED
Performing Provider: Natalie
Reason for Consultation: displaced suprapubic catheter, h/o neurogenic bladder
Medical History
History of Present Illness
58F w/ h/o NGB and urinary retention s/p suprapubic catheter insertion 09/2023 w/ Dr. Baer for long-term bladder management.
SPT functioning well w/o recent issues.
Has received majority of her care @[facility].
Presents w/ diaphoresis, lethargy, and hypotension concerning for sepsis.
SPT noted to have significant purulent sediment and debris in tubing - removed by ER staff.
SPT attempted to be re-inserted w/o success (morbid obesity w/ large pannus as complicating factors) - unable to pass catheter into bladder.
Assessed by Urology on admission - SPT could not be replaced due to body habitus and large pannus.
Urethral Chauhan catheter placed w/ purulent UOP.
Past Medical History
Past Medical History: CHF, GERD, IDDM (T2DM), Renal Failure (CKD) and Other (neurogenic bladder s/p SPT placement (09/2023), chronic bedbound status, class III obesity, conversion disorder, depression, seizures, sleep apnea)
Past Surgical History: Other (left BKA 01/2021, cystoscopy + SPT insertion 09/2023)
Social History
Unable to obtain full social history at this time due to: Acuity
Tobacco: Non-smoker
Alcohol: None
Drug: None
Personal: Single
Living: Intermediate
Employment: Disabled
Family History
Family History: Reviewed & Not Pertinent
Allergies/Home Medications
Allergies
Allergy/AdvReac Type Severity Reaction Status Date / Time
No Known Allergies Allergy Verified 09/17/23 08:35
Home Medications
�Medication �Instructions �Recorded �Confirmed �Type
acetaminophen 325 mg tablet 650 mg PO Q6HPRN PRN mild pain 09/17/23 07/26/24 History
albuterol sulfate 90 mcg/actuation 1 inh inhalation R Q4HPRN PRN 09/17/23 07/26/24 History
aerosol inhaler SOB/Wheeze
aluminum-mag hydroxide-simethicone 30 ml PO Q8HPRN PRN Bloating, Gas 09/17/23 07/26/24 History
400 mg-400 mg-40 mg/5 mL oral susp
(Maalox Maximum Strength)
atorvastatin 20 mg tablet 20 mg PO DAILY cholesterol 09/17/23 07/26/24 History
bisacodyl 10 mg rectal suppository 10 mg [place] DAILYPRN PRN if n bm 09/17/23 07/26/24 History
(Dulcolax (bisacodyl)) after mom
cyanocobalamin (vitamin B-12) 100 100 mcg PO Q48H Supplement 09/17/23 07/26/24 History
mcg tablet
duloxetine 30 mg capsule,delayed 90 mg PO DAILY Depression 09/17/23 07/26/24 History
release
guaifenesin 100 mg/5 mL oral liquid 200 mg PO Q6HPRN PRN 09/17/23 07/26/24 History
congestion;cough
insulin aspar prot-insulin aspart 14 unit SC BID diabetes 09/17/23 07/26/24 History
100 unit/mL (70-30) subcutaneous
pen (Novolog Mix 70-30FlexPen
U-100)
insulin aspart 1 sliding scale dose SC AC Diabetes 09/17/23 07/26/24 History
(niacinamide)(U-100) 100 unit/mL(3
mL) subcutaneous pen (Fiasp
FlexTouch U-100 Insulin)
lamotrigine 150 mg tablet 150 mg PO BID Seizures 09/17/23 07/26/24 History
levetiracetam 500 mg tablet 500 mg PO Q12H Seizures 09/17/23 07/26/24 History
loperamide 2 mg tablet 2 mg PO Q6HPRN PRN diarrhea 09/17/23 07/26/24 History
lorazepam 0.5 mg tablet (Ativan) 0.5 mg PO BID Anxiety 09/17/23 07/26/24 History
magnesium hydroxide 400 mg/5 mL 2,400 mg PO DAILYPRN PRN if no bm 09/17/23 07/26/24 History
oral suspension (Milk of Magnesia) by 3rd day
melatonin 10 mg tablet 10 mg PO HS Sleep 09/17/23 07/26/24 History
ondansetron 4 mg disintegrating 4 mg PO Q6HPRN PRN nausea/vomiting 09/17/23 07/26/24 History
tablet
sodium phosphates 19 gram-7 118 ml [place] DAILYPRN PRN if no bm 09/17/23 07/26/24 History
gram/118 mL enema (Fleet Enema) after dulcolax
tramadol 50 mg tablet 50 mg PO Q8HPRN PRN moderate pain 09/17/23 07/26/24 History
ammonium lactate 12 % topical cream 1 applic topical HS R lower 07/26/24 07/26/24 History
extremity
gabapentin 100 mg capsule 200 mg PO TID Pain 07/26/24 07/26/24 History
lisinopril 10 mg tablet 10 mg PO DAILY Blood Pressure 07/26/24 07/26/24 History
therapeutic multivitamin 1 tab PO DAILY Supplement 07/26/24 07/26/24 History
Review of Systems
-
History Source: Patient, Intermediate and Transfer Record
A 12 point Review of Systems was completed except as noted: Yes
Physical Exam
Vital Signs
Vital Signs
Temp Pulse Resp BP Pulse Ox
98.0 F 83 16 105/54 98
07/27/24 15:00 07/27/24 13:00 07/27/24 13:00 07/27/24 13:00 07/27/24 13:17
Lab / Testing Results
Laboratory Results
07/27/24 05:25
07/27/24 05:25
Physical Exam
HEENT: Normocephalic and Anicteric
Respiratory: Non Labored Respirations
Cardiac: Regular Rhythm
Breast: Deferred by me
GI: Soft, Non Tender and Distended (morbid obesity, large pannus)
Rectal: Deferred by Provider
Genito-urinary: Chauhan Catheter
Musculoskeletal: Edema (+2-3 edema of RLE, erythema from calf to medial thigh)
Neuro: No Motor Deficits and Nonfocal/Grossly Intact
Hematologic/Lymphatic: No Lymphadenopathy
Psych: Intact Judgement
Assessment / Plan
-
Neurogenic bladder managed w/ SPT (placed 09/2023)
Displaced SPT w/ inability to establish tract
Uncontrolled T2DM
RLE cellulitis
Pneumonia
07/26: CTAP w/o IV contrast => collapsed bladder w/ Chauhan catheter balloon within
- Cellulitis recommendations per ID
- Urethral catheter placed on admission w/ satisfactory UOP
- Maintain urethral catheter to drainage on discharge
- Catheter changes q4 weeks @[place]
- If replacement of SPT desired - will require outpatient F/U and discussion of cystoscopy/SPT replacement given anatomical challenges
D/w Hospitalist.
Data Reviewed
-
Total Time Spent with Patient (in minutes): 30
CT Scan: Image personally visualized and interpreted, Report Reviewed by Me and Discussed with Physician
Lab Data: Labs Reviewed and Discussed with Physician
Old Records: Reviewed
--- NOTE | 2024-07-27 16:59 | PTCARENOTE ---
Received patient on transfer from ED via stretcher at approximately 12:15. Patient had been in ED holding. Ox3, drowsy; she had received ativan prior to transfer. See worklist for full assessment and vital signs.
[2024-07-27 17:29] LABS: Glucose - Point of Care 220 mg/dl (70-99)
[2024-07-27] MEDS: NOVOLOG FLEXPEN-LOW RESISTANCE 2 UNITS SC (17:44)
--- NOTE | 2024-07-27 18:10 | PTCARENOTE ---
Order entered by Dr Thomas for levophed d/t low BP listed on telemetry screen in room. Patient had large bp cuff on upper arm that slid down to ac area. New bp cuff place on forearm; repeat BP 111/[address] Beard made aware via TT.
[2024-07-27] MEDS: DESENEX/MITRAZOL/ZEASORB 1 APPLIC TOPICAL (20:23)
[2024-07-27] MEDS: VIBRAMYCIN 100 MG PO (20:24)
[2024-07-27] MEDS: LAC HYDRIN, AM LACTIN LOTION 1 APPLIC TOPICAL (20:24)
[2024-07-27 21:04] LABS: Hematocrit 23.9 % (37.0-47.0); Hemoglobin 7.7 g/dL (12.0-16.0)
[2024-07-27 22:19] LABS: Glucose - Point of Care 217 mg/dl (70-99)
[2024-07-28] VITALS (18 sets, daily range): BP systolic 98–143; BP diastolic 48–92; PULSE 81; O2SAT 94; BMI 49.5
[2024-07-28] MEDS: MILK OF MAGNESIA 30 ML PO (00:42)
[2024-07-28] MEDS: SENOKOT-S 1 TABLET PO (00:42)
[2024-07-28] MEDS: MIRALAX 17 GRAMS PO (00:42)
--- NOTE | 2024-07-28 03:01 | PTCARENOTE ---
pt reports no bm in 3 days. round obese belly, positive bowel sounds. PRN senokot, miralax, and milk of mag given.
[2024-07-28 05:16] LABS: % Basophils 0.4 % (0-2); % Eosinophils 3.5 % (0-6); % Immature Granulocytes 0.7 % (0-0.5); % Lymphocytes 10.4 % (20.5-51.1); % Monocytes 8.7 % (1.7-9.3); % Neutrophils 76.3 % (42.2-75.2); Absolute Eosinophils 0.3 10^3/uL (0-0.7); Absolute Immature Granulocytes 0.1 10^3/uL (0-0.05); Absolute Lymphocytes 0.9 10^3/uL (1.2-3.4); Absolute Monocytes 0.7 10^3/uL (0.1-0.6); Absolute Neutrophils 6.2 10^3/uL (1.4-6.5); Hematocrit 25.5 % (37.0-47.0); Hemoglobin 7.9 g/dL (12.0-16.0); Mean Corpuscular Hgb 26.9 pg (27.0-31.0); Mean Corpuscular Volume 86.7 fL (81.0-99.0); Mean Platelet Volume 9.3 fL (7.4-10.4); Nucleated Red Blood Cells % 0 %; Platelet Count 229 10^3/uL (130-400); Red Blood Cell Count 2.94 10^6/uL (4.20-5.40); Red Cell Dist. Width 15.6 % (11.5-14.5); White Blood Cell Count 8.2 10^3/uL (4.8-10.8)
[2024-07-28 05:24] LABS: ALT (SGPT) 28 U/L (0-35); AST (SGOT) 41 U/L (14-36); Albumin 2.8 g/dl (3.5-5.0); Alkaline Phosphatase 320 U/L (38-126); Blood Urea Nitrogen 74 mg/dl (7-17); Calcium 8.4 mg/dl (8.4-10.2); Carbon Dioxide 20 mmol/L (22-30); Chloride 106 mmol/L (98-107); Estimated Creatinine Clearance 21 ml/min; Glucose 163 mg/dl (70-99); Potassium 4.3 mmol/L (3.5-5.1); Sodium 138 mmol/L (135-145); Total Bilirubin 0.6 mg/dl (0.2-1.3); Total Protein 6.3 g/dl (6.3-8.2)
[2024-07-28 08:03] LABS: Glucose - Point of Care 209 mg/dl (70-99)
[2024-07-28] MEDS: CYMBALTA DELAYED RELEASE 90 MG PO (08:07)
[2024-07-28] MEDS: LIPITOR 20 MG PO (08:07)
[2024-07-28] MEDS: NEURONTIN 200 MG PO ×3 (08:07→21:13)
[2024-07-28] MEDS: LAC HYDRIN, AM LACTIN LOTION 1 APPLIC TOPICAL ×2 (08:08→21:14)
[2024-07-28] MEDS: THERAGRAN 1 TABLET PO (08:08)
[2024-07-28] MEDS: LAMICTAL 150 MG PO ×2 (08:08→21:12)
[2024-07-28] MEDS: VIBRAMYCIN 100 MG PO ×2 (08:08→21:12)
[2024-07-28] MEDS: KEPPRA 500 MG PO ×2 (08:08→21:12)
[2024-07-28] MEDS: HEPARIN 5000 UNITS SC ×2 (08:09→21:10)
[2024-07-28] MEDS: NOVOLOG FLEXPEN-LOW RESISTANCE 2 UNITS SC ×3 (08:09→17:58)
[2024-07-28] MEDS: DESENEX/MITRAZOL/ZEASORB 1 APPLIC TOPICAL ×2 (08:09→21:09)
--- NOTE | 2024-07-28 09:05 | W.PN.HOSP.TC ---
Today's Communication/Plan
-
transfer to med/surg
midodrine for hypotension
f/u renal function
abx per ID
f/u urine cs report
Assessment / Plan
Assessment / Plan
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
occasionally, neurogenic bladder with chronic suprapubic catheter, chronic CHF, ? stage III CKD, GERD, conversion disorder/depression/seizures, sleep apnea noncompliant with CPAP who presented to the ED on July 26 due to hypotension, weakness, and
dry cough. Found to be lethargic.
#Septic shock - Resolved
# Mild toxic encephalopathy from septic shock - improved
# Right leg cellulitis versus UTI
- Patient required Levophed support weaned off of it blood pressure stable
- Possible source of right lower extremity cellulitis versus UTI
- Chest x-ray reviewed and left lower lobe pneumonia is questionable, possibly atelectatic in nature. Patient not complaining any dyspnea/cough
- Blood cs neg. legionella/strep neg.
- Urine culture remains negative
- ID following and help appreciated. Patient on Rocephin and doxycycline
#Acute renal failure on suspected CKD Stage 3b
Neurogenic bladder
- Could be post obstructive as suprapubic catheter was clogged on admission
- Creatinine continues to trend up, 4.2 today
- [facility]
- Urology unable to replace suprapubic catheter either, a Chauhan catheter was placed instead
#Normocytic anemia
- Checked type and screen
- Blood consent obtained in the ER and scanned in chart on 07/26/24
- Check iron panel, B12, folate
- ER obtaining records from [facility]
- Continue B12 100 mcg p.o. every 48 hours
#Acute on chronic CHF-likely diastolic
- Patient required IV fluid hydration during the admission
- Not on any diuretics based on [facility] medication list
- Renal function remains elevated
#Chronic indwelling suprapubic catheter secondary to neurogenic bladder
- In ER was unable to exchange suprapubic catheter
- ER spoke with on-call urology recommended placing urethral Chauhan catheter
- Urethral catheter placed on admission w/ satisfactory UOP
- Maintain urethral catheter to drainage on discharge
- Catheter changes q4 weeks @[place]
- If replacement of SPT desired - will need outpatient urology F/U and discussion of cystoscopy/SPT replacement given anatomical challenges
#Type 2 Diabetes Mellitus
- Continue Accu-Cheks with SSI, checked HgbA1c 8.2%
Hypertension
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
Conversion disorder with seizures/convulsions
Depression -Continue duloxetine 90 mg daily, Lamictal 150 mg p.o. twice daily, Keppra 500 mg p.o. every 12 hours -Continue Ativan 0.5 mg p.o. twice daily hold for extreme lethargy
History of Cognitive Communication Deficit
History of Aphasia
Chronic bedbound status uses slide board to transfer to wheelchair occasionally
GERD
Mild hepatosplenomegaly on CT imaging
Mild to moderate right inguinal lymphadenopathy on CT
Hyperlipidemia - Continue atorvastatin 20 mg daily
Sleep apnea - Noncompliant with CPAP
Insomnia
Muscle Weakness History
History of Osteomyelitis
Morbid Obesity
DVT Prophylaxis: Heparin Subq
Code Status: DNR (confirmed with patient -- patient had full decision-making capacity and confirmed DNR status on 07/27/24)
Total time spent : 53 mins
Anticipated Discharge: > 48 hours
Subjective/Interval History
-
Date of Service: July 28, 2024
Patient resting comfortably in bed
Denies of having any issues overnight
No reported abdominal pain/nausea/vomiting
Objective Data
-
Labs:
Laboratory Results
07/28/24
04:41
WBC 8.2
Hgb 7.9 L
Hct 25.5 L
Plt Count 229 D
Sodium 138
Potassium 4.3
Chloride 106
Carbon Dioxide 20 L
BUN 74 H
Creatinine 4.2 H*
Glucose 163 H
Calcium 8.4
Total Bilirubin 0.6
AST 41 H
ALT 28
Alkaline Phosphatase 320 H
Vital Signs:
Vital Signs
Temp Pulse Resp BP Pulse Ox
97.5 F 78 29 98/48 92
07/28/24 07:30 07/28/24 06:03 07/28/24 06:03 07/28/24 06:03 07/28/24 06:03
I&O
07/27/24 07/28/24 07/29/24
06:59 06:59 06:59
Intake Total 380 / 380 310 / 310
Output Total 300 / 300 500 / 500
Balance 80 / 80 -190 / -190
Review of Systems
-
Respiratory: Reports No Symptoms
Cardiac: Reports No Symptoms
Abdomen/GI: Reports No Symptoms
Physical Exam
-
General: Comfortable and Morbidly Obese
HEENT: Negative Oxygen
Genito-urinary: Chauhan
Musculoskeletal: No Edema
Neuro: Awake, Alert, Oriented, No Motor Deficits and Nonfocal/Grossly Intact
Psych: Calm
[2024-07-28] MEDS: ProAmatine 5 MG PO ×2 (12:43→17:56)
[2024-07-28 12:52] LABS: Glucose - Point of Care 209 mg/dl (70-99)
--- NOTE | 2024-07-28 13:06 | W.PN.ID1 ---
Date of Service
Date of Service: July 28, 2024
Today's Communication
Continue abx's.
Assessment / Plan
# Acute RLE non-purulent cellulitis.
# LLE pneumonia
# KIRAN on CKD3b
# Hypotension resolved
-Bcx's x 2 neg to date
- Continue ceftriaxone/doxycycline (d3)
- Continue Darshan-wrap compression RLE.
# DM -uncontrolled
- Tight glucose control.
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
Type 2 diabetes
Hypertension
Heart failure
CKD 3B
Conversion disorder/depression/seizures
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
Overactive bladder with suprapubic catheter
Class III obesity BMI 50
Sleep apnea not compliant with CPAP
Bedbound status
Chief Complaint
-: Pneumonia and Cellulitis
Subjective / Review of Systems
Overall feels better. Still with cough, nonproductive.
Vital Signs / Physical Exam
Vital Signs
Vital Signs
Temp Pulse Resp BP Pulse Ox
97.4 F 87 13 114/61 91
07/28/24 11:35 07/28/24 12:43 07/28/24 11:00 07/28/24 12:43 07/28/24 11:50
Physical Exam
Constitutional: No Acute Distress
Pulmonary: Rales (left base)
Gastrointestinal: Soft, Non Tender, Non Distended and Normal Bowel Sounds
Extremities: Edema (RLE) and Erythema (calf to upper posterior thigh)
Neurological: AO x 3
Objective Data
Lab Data
Lab Results
07/28/24 04:41
07/28/24 04:41
Estimated Creat Clear 21 ml/min 07/28/24 04:41
Lactic Acid Cancelled 07/26/24 17:45
Total Bilirubin 0.6 mg/dl (0.2-1.3) 07/28/24 04:41
AST 41 U/L (14-36) H 07/28/24 04:41
ALT 28 U/L (0-35) 07/28/24 04:41
Alkaline Phosphatase 320 U/L (38-126) H 07/28/24 04:41
Most recent labs reviewed.
Micro Results:
07/26/24 16:43 Urine Culture - Final
Urine
07/26/24 22:10 MRSA Screen - Final
Nose No Methicillin Resistant Staphylococcus aureus isolated.
07/26/24 13:52 Blood Culture - Preliminary
Blood/Venous No Growth in 24 hours- Final report to follow
07/26/24 13:50 Blood Culture - Preliminary
Blood/Venous No Growth in 24 hours- Final report to follow
07/26/24 16:43 Legionella Urinary Antigen - Final
Urine Negative for Legionella pneumophila Serogroup 1 antigen.
A negative result does not rule out the possiblity of
Legionella infection due to other serogroups or species of
Legionella. Clinical correlation is recommended.
Streptococcus pneumoniae Antigen (M - Final
Negative for Streptococcus pneumoniae antigen.
A negative result does not exclude infection with
Streptococcus pneumoniae. Clinical correlation is
recommended.
07/26/24 CT a/p: Large dense left lower lobe airspace consolidation containing air bronchograms.
--- NOTE | 2024-07-28 13:30 | PTCARENOTE ---
Pt with no order for Chauhan catheter. TT and asked to put in order x2.
[2024-07-28] MEDS: ROCEPHIN 2000 MG IV (13:49)
[2024-07-28] MEDS: STERILE WATER FOR INJECTION 20 ML IV (13:49)
[2024-07-28] MEDS: ProAIR HFA INHALER 1 PUFF INH (14:15)
[2024-07-28 16:40] LABS: Glucose - Point of Care 239 mg/dl (70-99)
--- NOTE | 2024-07-28 16:59 | CM ---
Patient from [facility] with Hx left BKA, neurogenic bladder with chronic suprapubic catheter, obesity with Dx RLE cellulitis, UTI, possible pneumonia, ARF, CHF. Room air. Receiving IV Abx. Per nurse; bedrest, Ox3. PT Eval; return to LTC.
Spoke with Lucius Hinton [facility];
the patient resides there in LTC and is on an MA bed hold.
She was A/O, is able to assist with her upper body ADLs, and dependent for lower body ADLs.
The patient is w/c bound and requires assist of 2.
The patient was not receiving PT/OT.
Patient was on a bariatric bed.
Per Mary Jane, it is unknown if patient has a left leg prosthesis.
The for report [phone], fax [phone].
Plan return to [facility] when medically ready.
[2024-07-28 21:02] LABS: Glucose - Point of Care 199 mg/dl (70-99)
[2024-07-29] MEDS: ROBITUSSIN DM 5 ML PO (02:00)
[2024-07-29 06:00] VITALS: BMI 48.5
[2024-07-29] MEDS: ZOFRAN ODT (ORALLY DISINTEGRATING) 4 MG PO ×2 (06:01→13:06)
[2024-07-29 07:37] LABS: Platelet Count 293 10^3/uL (130-400)
[2024-07-29 07:38] LABS: % Basophils 0.5 % (0-2); % Eosinophils 4.9 % (0-6); % Immature Granulocytes 1.6 % (0-0.5); % Monocytes 7.5 % (1.7-9.3); % Neutrophils 71.5 % (42.2-75.2); Absolute Eosinophils 0.3 10^3/uL (0-0.7); Absolute Immature Granulocytes 0.1 10^3/uL (0-0.05); Absolute Lymphocytes 0.9 10^3/uL (1.2-3.4); Absolute Monocytes 0.5 10^3/uL (0.1-0.6); Absolute Neutrophils 4.4 10^3/uL (1.4-6.5); Hematocrit 24.7 % (37.0-47.0); Hemoglobin 7.9 g/dL (12.0-16.0); Mean Corpuscular Hgb 27.3 pg (27.0-31.0); Mean Corpuscular Volume 85.5 fL (81.0-99.0); Mean Platelet Volume 9.3 fL (7.4-10.4); Nucleated Red Blood Cells % 0 %; Red Blood Cell Count 2.89 10^6/uL (4.20-5.40); Red Cell Dist. Width 15.8 % (11.5-14.5); White Blood Cell Count 6.2 10^3/uL (4.8-10.8)
[2024-07-29 07:43] VITALS: BP 136/58
[2024-07-29 07:50] LABS: ALT (SGPT) 27 U/L (0-35); AST (SGOT) 29 U/L (14-36); Albumin 2.8 g/dl (3.5-5.0); Alkaline Phosphatase 332 U/L (38-126); Blood Urea Nitrogen 65 mg/dl (7-17); Calcium 8.8 mg/dl (8.4-10.2); Carbon Dioxide 18 mmol/L (22-30); Chloride 110 mmol/L (98-107); Estimated Creatinine Clearance 25 ml/min; Glucose 152 mg/dl (70-99); Potassium 4.5 mmol/L (3.5-5.1); Sodium 140 mmol/L (135-145); Total Bilirubin 0.4 mg/dl (0.2-1.3); Total Protein 6.3 g/dl (6.3-8.2); eGFR 14.94
[2024-07-29 08:16] LABS: Glucose - Point of Care 165 mg/dl (70-99)
[2024-07-29] MEDS: DESENEX/MITRAZOL/ZEASORB 1 APPLIC TOPICAL ×2 (08:41→21:13)
[2024-07-29] MEDS: LAMICTAL 150 MG PO ×2 (08:41→21:14)
[2024-07-29] MEDS: NEURONTIN 200 MG PO ×3 (08:41→21:17)
[2024-07-29] MEDS: ProAmatine 5 MG PO ×3 (08:42→17:32)
[2024-07-29] MEDS: VITAMIN B-12 100 MCG PO (08:42)
[2024-07-29] MEDS: CYMBALTA DELAYED RELEASE 90 MG PO (08:42)
[2024-07-29] MEDS: THERAGRAN 1 TABLET PO (08:42)
[2024-07-29] MEDS: KEPPRA 500 MG PO ×2 (08:43→21:15)
[2024-07-29] MEDS: LIPITOR 20 MG PO (08:43)
[2024-07-29] MEDS: VIBRAMYCIN 100 MG PO ×2 (08:43→21:14)
[2024-07-29] MEDS: HEPARIN 5000 UNITS SC ×2 (08:43→21:15)
[2024-07-29] MEDS: LAC HYDRIN, AM LACTIN LOTION 1 APPLIC TOPICAL ×2 (08:44→21:13)
[2024-07-29] MEDS: NOVOLOG FLEXPEN-LOW RESISTANCE 1 UNITS SC ×3 (08:44→17:31)
--- NOTE | 2024-07-29 11:19 | PN.CDI ---
CDI
- -
CDI:
Physician Documentation Request
Admit Date: 07/26/24 17:44
Dear Doctor Primitivo,
Please review the following and provide your response in the progress notes.
Clinical Indicators:
Pt admitted with septic shock, UTI, cellulitis and KIRAN
ER Note: ' She is found to have a low-grade fever by rectal temp, markedly purulent urine present in suprapubic tube. I attempted to replace the suprapubic at the bedside however was unable to pass, may be a product of the tract not being overly
mature as it was just placed in October.'
Please clarify the relationship between these conditions:
Yes, UTI is related to/associated with/due to Chronic Suprapubic catheter.
No, UTI is not related to/associated with/due to Chronic Suprapubic catheter.
Other
Use of terms such as suspected, likely, concern for, or probable (associated with a specific diagnosis that is being evaluated, monitored, or treated as if it exists) are acceptable and can be coded in the inpatient setting, when documented at the
time of discharge.
Thank you,
Fátima Gomez RN, BSN
CDI Specialist
[place] [facility]
Please use your independent medical judgment in providing your response.
[2024-07-29 12:33] LABS: Glucose - Point of Care 181 mg/dl (70-99)
[2024-07-29] MEDS: FLUSH (NSS) 2 FLUSH IV (12:57)
[2024-07-29] MEDS: ROCEPHIN 2000 MG IV (13:00)
[2024-07-29] MEDS: STERILE WATER FOR INJECTION 20 ML IV (13:00)
--- NOTE | 2024-07-29 13:51 | W.PN.ID1 ---
Date of Service
Date of Service: July 29, 2024
Today's Communication
Continue current abx's.
Assessment / Plan
# Acute RLE non-purulent cellulitis.
# LLE pneumonia
# KIRAN on CKD3b
# Hypotension resolved
-Bcx's x 2 neg to date
-MRSA screen negative
- Continue ceftriaxone/doxycycline (d4)
- Continue Darshan-wrap compression RLE.
# DM -uncontrolled
- Tight glucose control.
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
Type 2 diabetes
Hypertension
Heart failure
CKD 3B
Conversion disorder/depression/seizures
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
Overactive bladder with suprapubic catheter
Class III obesity BMI 50
Sleep apnea not compliant with CPAP
Bedbound status
Chief Complaint
-: Pneumonia and Cellulitis
Subjective / Review of Systems
c/o nausea
Cough improving.
Per friend at bedside, RLE redness has decreased
Vital Signs / Physical Exam
Vital Signs
Vital Signs
Temp Pulse Resp BP Pulse Ox
99 F 90 20 136/58 93
07/29/24 07:43 07/29/24 07:43 07/29/24 07:43 07/29/24 07:43 07/29/24 07:43
Physical Exam
Constitutional: No Acute Distress and Comfortable
Cardiovascular: Regular Rate and S1/S2
Pulmonary: Rales (left base)
Gastrointestinal: Soft, Non Tender, Non Distended and Normal Bowel Sounds
Extremities: Edema (RLE) and Erythema (Distal carmona, calf to upper posterior thigh stable)
Neurological: AO x 3
Objective Data
Lab Data
Lab Results
07/29/24 06:57
07/29/24 06:57
Estimated Creat Clear 25 ml/min 07/29/24 06:57
Lactic Acid Cancelled 07/26/24 17:45
Total Bilirubin 0.4 mg/dl (0.2-1.3) 07/29/24 06:57
AST 29 U/L (14-36) 07/29/24 06:57
ALT 27 U/L (0-35) 07/29/24 06:57
Alkaline Phosphatase 332 U/L (38-126) H 07/29/24 06:57
Most recent labs reviewed.
Micro Results:
07/26/24 13:52 Blood Culture - Preliminary
Blood/Venous No Growth in 48 hours- Final report to follow
07/26/24 13:50 Blood Culture - Preliminary
Blood/Venous No Growth in 48 hours- Final report to follow
07/26/24 16:43 Urine Culture - Final
Urine
07/26/24 22:10 MRSA Screen - Final
Nose No Methicillin Resistant Staphylococcus aureus isolated.
07/26/24 16:43 Legionella Urinary Antigen - Final
Urine Negative for Legionella pneumophila Serogroup 1 antigen.
A negative result does not rule out the possiblity of
Legionella infection due to other serogroups or species of
Legionella. Clinical correlation is recommended.
Streptococcus pneumoniae Antigen (M - Final
Negative for Streptococcus pneumoniae antigen.
A negative result does not exclude infection with
Streptococcus pneumoniae. Clinical correlation is
recommended.
07/26/24 CT a/p: Large dense left lower lobe airspace consolidation containing air bronchograms.
Care Review
Plan reviewed with: Physician (Dr. Annabelle Langford)
--- NOTE | 2024-07-29 14:06 | W.PN.HOSP.TC ---
Addendum entered and electronically signed by Wilber Langford MD 07/30/24 08:01:
Yes, UTI is related to/associated with/due to Chronic Suprapubic catheter
Original Note:
Today's Communication/Plan
-
see note
Assessment / Plan
Assessment / Plan
58-year-old female from [facility], with past medical history of DM2 insulin-dependent, status post left BKA January 2021, class III obesity�BMI 50.6 kg, chronic bedbound status uses slide board to transfer to wheelchair
occasionally, neurogenic bladder with chronic suprapubic catheter, chronic CHF, ? stage III CKD, GERD, conversion disorder/depression/seizures, sleep apnea noncompliant with CPAP who presented to the ED on July 26 due to hypotension, weakness, and
dry cough. Found to be lethargic.
#Septic shock - Resolved
# Mild toxic encephalopathy from septic shock - improved
# Right leg cellulitis versus UTI
- Patient required Levophed support weaned off of it blood pressure stable
- Possible source of right lower extremity cellulitis versus UTI
- Chest x-ray reviewed and left lower lobe pneumonia is questionable, possibly atelectatic in nature. Patient not complaining any dyspnea/cough
- Blood cs neg. legionella/strep neg.
- Urine culture remains negative
- ID following and help appreciated. Patient on Rocephin and doxycycline
- Continue leg elevation/rosa isela wrap as tolerated for RLE
#Acute renal failure on suspected CKD Stage 3b
Neurogenic bladder
- Could be post obstructive as suprapubic catheter was clogged on admission
- Creatinine trending down slowly, monitor
- Records to be obtained from [facility]
- Urology unable to replace suprapubic catheter either, a Chauhan catheter was placed instead.
#Normocytic anemia
- Checked type and screen
- Blood consent obtained in the ER and scanned in chart on 07/26/24
- ER obtaining records from [facility]
- Continue B12 100 mcg p.o. every 48 hours
#Acute on chronic CHF-likely diastolic
- Patient required IV fluid hydration during the admission
- Not on any diuretics based on jail medication list
- Renal function remains elevated
#Chronic indwelling suprapubic catheter secondary to neurogenic bladder
- In ER was unable to exchange suprapubic catheter
- ER spoke with on-call urology recommended placing urethral Chauhan catheter
- Urethral catheter placed on admission w/ satisfactory UOP
- Maintain urethral catheter to drainage on discharge
- Catheter changes q4 weeks @[facility]
- If replacement of SPT desired - will need outpatient urology F/U and discussion of cystoscopy/SPT replacement given anatomical challenges
#Type 2 Diabetes Mellitus
- Continue Accu-Cheks with SSI, checked HgbA1c 8.2%
Hypertension
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
Conversion disorder with seizures/convulsions
Depression -Continue duloxetine 90 mg daily, Lamictal 150 mg p.o. twice daily, Keppra 500 mg p.o. every 12 hours -Continue Ativan 0.5 mg p.o. twice daily hold for extreme lethargy
History of Cognitive Communication Deficit
History of Aphasia
Chronic bedbound status uses slide board to transfer to wheelchair occasionally
GERD
Mild hepatosplenomegaly on CT imaging
Mild to moderate right inguinal lymphadenopathy on CT
Hyperlipidemia - Continue atorvastatin 20 mg daily
Sleep apnea - Noncompliant with CPAP
Insomnia
Muscle Weakness History
History of Osteomyelitis
Morbid Obesity
DVT Prophylaxis: Heparin Subq
Code Status: DNR (confirmed with patient -- patient had full decision-making capacity and confirmed DNR status on 07/27/24)
Anticipated Discharge: 24 - 48 hours
Subjective/Interval History
-
Date of Service: July 29, 2024
Some nausea no vomiting
Afebrile overnight
No other reported problem
Objective Data
-
Labs:
Laboratory Results
07/29/24
06:57
WBC 6.2
Hgb 7.9 L
Hct 24.7 L
Plt Count 293 D
Sodium 140
Potassium 4.5
Chloride 110 H
Carbon Dioxide 18 L
BUN 65 H
Creatinine 3.4 H
Glucose 152 H
Calcium 8.8
Total Bilirubin 0.4
AST 29
ALT 27
Alkaline Phosphatase 332 H
Vital Signs:
Vital Signs
Temp Pulse Resp BP Pulse Ox
99 F 90 20 136/58 93
07/29/24 07:43 07/29/24 07:43 07/29/24 07:43 07/29/24 07:43 07/29/24 07:43
I&O
07/28/24 07/29/24 07/30/24
06:59 06:59 06:59
Intake Total 310 / 310 480 / 480
Output Total 500 / 500 1425 / 1425
Balance -190 / -190 -945 / -945
Review of Systems
-
Respiratory: Reports No Symptoms
Cardiac: Reports No Symptoms
Abdomen/GI: Reports Nausea; Denies Vomiting
Physical Exam
-
General: Comfortable and Morbidly Obese
HEENT: Negative Oxygen
Genito-urinary: Chauhan
Musculoskeletal: Edema, Right Lower Extrem (erythema behind thigh and lower leg)
Neuro: Awake, Alert, Oriented, No Motor Deficits and Nonfocal/Grossly Intact
Psych: Calm
[2024-07-29 15:08] VITALS: BP 149/62
--- NOTE | 2024-07-29 16:00 | CM ---
Chart reviewed and patient was admitted from [facility] and plan is for patient to return to [facility] when stable.
[facility]
Report [phone]
.
[2024-07-29 16:28] LABS: Glucose - Point of Care 169 mg/dl (70-99)
[2024-07-29 21:58] LABS: Glucose - Point of Care 215 mg/dl (70-99)
[2024-07-29 23:00] VITALS: BP 146/59
[2024-07-30] MEDS: ZOFRAN ODT (ORALLY DISINTEGRATING) 4 MG PO (00:51)
[2024-07-30 06:00] VITALS: BMI 48.1
[2024-07-30 07:40] LABS: ALT (SGPT) 21 U/L (0-35); AST (SGOT) 18 U/L (14-36); Albumin 2.7 g/dl (3.5-5.0); Alkaline Phosphatase 337 U/L (38-126); Blood Urea Nitrogen 48 mg/dl (7-17); Calcium 8.9 mg/dl (8.4-10.2); Carbon Dioxide 21 mmol/L (22-30); Chloride 112 mmol/L (98-107); Estimated Creatinine Clearance 33 ml/min; Glucose 165 mg/dl (70-99); Potassium 4.3 mmol/L (3.5-5.1); Sodium 141 mmol/L (135-145); Total Bilirubin 0.3 mg/dl (0.2-1.3); Total Protein 6.1 g/dl (6.3-8.2); eGFR 20.62
[2024-07-30 07:51] LABS: Glucose - Point of Care 184 mg/dl (70-99)
[2024-07-30 07:52] LABS: % Basophils 0.6 % (0-2); % Eosinophils 4.1 % (0-6); % Immature Granulocytes 3.9 % (0-0.5); % Lymphocytes 18.8 % (20.5-51.1); % Monocytes 7.2 % (1.7-9.3); % Neutrophils 65.4 % (42.2-75.2); Absolute Eosinophils 0.2 10^3/uL (0-0.7); Absolute Immature Granulocytes 0.2 10^3/uL (0-0.05); Absolute Monocytes 0.4 10^3/uL (0.1-0.6); Absolute Neutrophils 3.6 10^3/uL (1.4-6.5); Hematocrit 25.7 % (37.0-47.0); Mean Corp Hgb Conc. 31.1 g/dL (33.0-37.0); Mean Corpuscular Hgb 26.8 pg (27.0-31.0); Mean Corpuscular Volume 86.2 fL (81.0-99.0); Mean Platelet Volume 8.8 fL (7.4-10.4); Nucleated Red Blood Cells % 0 %; Platelet Count 333 10^3/uL (130-400); Red Blood Cell Count 2.98 10^6/uL (4.20-5.40); Red Cell Dist. Width 15.7 % (11.5-14.5); White Blood Cell Count 5.4 10^3/uL (4.8-10.8)
[2024-07-30 08:12] VITALS: BP 139/63
[2024-07-30] MEDS: NOVOLOG FLEXPEN-LOW RESISTANCE 300 UNITS SC (09:10)
[2024-07-30] MEDS: NEURONTIN 200 MG PO ×3 (09:11→21:00)
[2024-07-30] MEDS: ProAmatine 5 MG PO (09:11)
[2024-07-30] MEDS: VIBRAMYCIN 100 MG PO ×2 (09:11→20:43)
[2024-07-30] MEDS: CYMBALTA DELAYED RELEASE 90 MG PO (09:12)
[2024-07-30] MEDS: LAMICTAL 150 MG PO ×2 (09:12→20:44)
[2024-07-30] MEDS: THERAGRAN 1 TABLET PO (09:13)
[2024-07-30] MEDS: KEPPRA 500 MG PO ×2 (09:13→20:43)
[2024-07-30] MEDS: LIPITOR 20 MG PO (09:13)
[2024-07-30] MEDS: DESENEX/MITRAZOL/ZEASORB 1 APPLIC TOPICAL ×2 (09:14→20:42)
[2024-07-30] MEDS: HEPARIN 5000 UNITS SC ×2 (09:14→21:00)
[2024-07-30] MEDS: LAC HYDRIN, AM LACTIN LOTION 1 APPLIC TOPICAL ×2 (09:15→20:42)
[2024-07-30 11:36] LABS: Glucose - Point of Care 248 mg/dl (70-99)
[2024-07-30] MEDS: NOVOLOG FLEXPEN-LOW RESISTANCE 2 UNITS SC ×2 (12:05→17:17)
[2024-07-30 12:20] VITALS: O2SAT 92
--- NOTE | 2024-07-30 12:30 | W.PN.ID1 ---
Date of Service
Date of Service: July 30, 2024
Today's Communication
Continue ceftriaxone/doxycycline
Assessment / Plan
# Acute RLE non-purulent cellulitis, improving.
# LLE pneumonia
# KIRAN on CKD3b, improving
# Hypotension resolved
-Bcx's x 2 neg to date
-MRSA screen negative
- Continue ceftriaxone/doxycycline (d5)
- Continue Darshan-wrap compression RLE.
- At time of dc, transition to Augmentin 875mg po bid and doxycycline 100mg po bid through 08/04/24.
# DM -uncontrolled
- Tight glucose control.
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
Type 2 diabetes
Hypertension
Heart failure
CKD 3B
Conversion disorder/depression/seizures
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
Overactive bladder with suprapubic catheter
Class III obesity BMI 50
Sleep apnea not compliant with CPAP
Bedbound status
Chief Complaint
-: Pneumonia and Cellulitis
Subjective / Review of Systems
Overall continues to improve. Cough stable.
Vital Signs / Physical Exam
Vital Signs
Vital Signs
Temp Pulse Resp BP Pulse Ox
97.5 F 86 18 139/63 93
07/30/24 08:12 07/30/24 09:11 07/30/24 08:12 07/30/24 09:11 07/30/24 09:00
Physical Exam
Constitutional: No Acute Distress
Cardiovascular: Regular Rate and S1/S2
Pulmonary: Rales (left base)
Gastrointestinal: Soft, Non Tender, Non Distended and Normal Bowel Sounds
Extremities: Edema (RLE decreased) and Erythema (Distal carmona, calf to upper posterior thigh decreasing)
Neurological: AO x 3
Objective Data
Lab Data
Lab Results
07/30/24 07:00
07/30/24 07:00
Estimated Creat Clear 33 ml/min 07/30/24 07:00
Lactic Acid Cancelled 07/26/24 17:45
Total Bilirubin 0.3 mg/dl (0.2-1.3) 07/30/24 07:00
AST 18 U/L (14-36) 07/30/24 07:00
ALT 21 U/L (0-35) 07/30/24 07:00
Alkaline Phosphatase 337 U/L (38-126) H 07/30/24 07:00
Most recent labs reviewed.
Micro Results:
07/26/24 13:50 Blood Culture - Preliminary
Blood/Venous No Growth in 72 hours- Final report to follow
07/26/24 13:52 Blood Culture - Preliminary
Blood/Venous No Growth in 72 hours- Final report to follow
07/26/24 16:43 Urine Culture - Final
Urine
07/26/24 22:10 MRSA Screen - Final
Nose No Methicillin Resistant Staphylococcus aureus isolated.
07/26/24 16:43 Legionella Urinary Antigen - Final
Urine Negative for Legionella pneumophila Serogroup 1 antigen.
A negative result does not rule out the possiblity of
Legionella infection due to other serogroups or species of
Legionella. Clinical correlation is recommended.
Streptococcus pneumoniae Antigen (M - Final
Negative for Streptococcus pneumoniae antigen.
A negative result does not exclude infection with
Streptococcus pneumoniae. Clinical correlation is
recommended.
07/26/24 CT a/p: Large dense left lower lobe airspace consolidation containing air bronchograms.
[2024-07-30] MEDS: ProAmatine PO ×2 (12:37→17:16)
[2024-07-30] MEDS: ROCEPHIN 2000 MG IV (14:12)
[2024-07-30] MEDS: FLUSH (NSS) 1 FLUSH IV (14:13)
[2024-07-30] MEDS: STERILE WATER FOR INJECTION 20 ML IV (14:13)
--- NOTE | 2024-07-30 14:39 | W.PN.HOSP.TC ---
Today's Communication/Plan
-
f/u renal function
possible d/c in 24hrs
Assessment / Plan
Assessment / Plan
58-year-old female from [facility], with past medical history of DM2 insulin-dependent, status post left BKA January 2021, class III obesity�BMI 50.6 kg, chronic bedbound status uses slide board to transfer to wheelchair
occasionally, neurogenic bladder with chronic suprapubic catheter, chronic CHF, ? stage III CKD, GERD, conversion disorder/depression/seizures, sleep apnea noncompliant with CPAP who presented to the ED on July 26 due to hypotension, weakness, and
dry cough. Found to be lethargic.
#Septic shock - Resolved
# Mild toxic encephalopathy from septic shock - improved
# Right leg cellulitis versus UTI
- Patient required Levophed support weaned off of it blood pressure stable
- Possible source of right lower extremity cellulitis versus UTI
- Chest x-ray reviewed and left lower lobe pneumonia is questionable, possibly atelectatic in nature. Patient not complaining any dyspnea/cough
- Blood cs neg. legionella/strep neg.
- Urine culture remains negative
- ID following and help appreciated. Patient on Rocephin and doxycycline
- Continue leg elevation/rosa isela wrap as tolerated for RLE
#Acute renal failure on suspected CKD Stage 3b
Neurogenic bladder
- Could be post obstructive as suprapubic catheter was clogged on admission
- Creatinine continues to trend down
- Records to be obtained from [facility]
- Urology unable to replace suprapubic catheter either, a Chauhan catheter was placed instead.
#Normocytic anemia
- Checked type and screen
- Blood consent obtained in the ER and scanned in chart on 07/26/24
- ER obtaining records from [facility]
- Continue B12 100 mcg p.o. every 48 hours
#Acute on chronic CHF-likely diastolic
- Patient required IV fluid hydration during the admission
- Not on any diuretics based on alf medication list
- Renal function remains elevated
#Chronic indwelling suprapubic catheter secondary to neurogenic bladder
- In ER was unable to exchange suprapubic catheter
- ER spoke with on-call urology recommended placing urethral Chauhan catheter
- Urethral catheter placed on admission w/ satisfactory UOP
- Maintain urethral catheter to drainage on discharge
- Catheter changes q4 weeks @[facility]
- If replacement of SPT desired - will need outpatient urology F/U and discussion of cystoscopy/SPT replacement given anatomical challenges
#Type 2 Diabetes Mellitus
- Continue Accu-Cheks with SSI, checked HgbA1c 8.2%
Hypertension
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
Conversion disorder with seizures/convulsions
Depression -Continue duloxetine 90 mg daily, Lamictal 150 mg p.o. twice daily, Keppra 500 mg p.o. every 12 hours -Continue Ativan 0.5 mg p.o. twice daily hold for extreme lethargy
History of Cognitive Communication Deficit
History of Aphasia
Chronic bedbound status uses slide board to transfer to wheelchair occasionally
GERD
Mild hepatosplenomegaly on CT imaging
Mild to moderate right inguinal lymphadenopathy on CT
Hyperlipidemia - Continue atorvastatin 20 mg daily
Sleep apnea - Noncompliant with CPAP
Insomnia
Muscle Weakness History
History of Osteomyelitis
Morbid Obesity
DVT Prophylaxis: Heparin Subq
Code Status: DNR (confirmed with patient -- patient had full decision-making capacity and confirmed DNR status on 07/27/24)
Anticipated Discharge: Within 24 hours
Subjective/Interval History
-
Date of Service: July 30, 2024
Resting complaint bed
No problems overnight
Denies nausea/vomiting
Objective Data
-
Labs:
Laboratory Results
07/30/24
07:00
WBC 5.4
Hgb 8.0 L
Hct 25.7 L
Plt Count 333
Sodium 141
Potassium 4.3
Chloride 112 H
Carbon Dioxide 21 L
BUN 48 H
Creatinine 2.6 H
Glucose 165 H
Calcium 8.9
Total Bilirubin 0.3
AST 18
ALT 21
Alkaline Phosphatase 337 H
Vital Signs:
Vital Signs
Temp Pulse Resp BP Pulse Ox
97.5 F 93 18 138/43 93
07/30/24 08:12 07/30/24 12:37 07/30/24 08:12 07/30/24 12:37 07/30/24 09:00
I&O
07/29/24 07/30/24 07/31/24
06:59 06:59 06:59
Intake Total 480 / 480 720 / 720
Output Total 1425 / 1425 2300 / 2300 800 / 800
Balance -945 / -945 -1580 / -1580 -800 / -800
Review of Systems
-
Respiratory: Reports No Symptoms
Cardiac: Reports No Symptoms
Abdomen/GI: Reports No Symptoms
Physical Exam
-
General: Comfortable and Morbidly Obese
HEENT: Negative Oxygen
Genito-urinary: Chauhan
Musculoskeletal: Edema, Right Lower Extrem (erythema behind thigh and lower leg)
Neuro: Awake, Alert, Oriented, No Motor Deficits and Nonfocal/Grossly Intact
Psych: Calm
[2024-07-30 15:41] VITALS: BP 159/76
--- NOTE | 2024-07-30 16:07 | PTCARENOTE ---
Pt AAO x3, NAVARRO; able to turn self with assistance; able to sit on edge of bed with PT. VSS. On room air- pulse ox 96%, no SOB noted. Abd obese, soft, magnus :PO well. Incont soft brown BM. Chauhan P/I large amts clear yellow urine. SEDRICK wrap intact
to RLE. Resting in bed at present, no c/o. Will continue to monitor.
[2024-07-30 16:31] LABS: Glucose - Point of Care 240 mg/dl (70-99)
[2024-07-30 21:17] LABS: Glucose - Point of Care 228 mg/dl (70-99)
[2024-07-30 23:52] VITALS: BP 168/71
[2024-07-31 03:21] VITALS: BP 143/71
[2024-07-31 06:00] VITALS: BMI 47.8
[2024-07-31 07:27] VITALS: BP 141/51
[2024-07-31 07:27] LABS: % Basophils 0.7 % (0-2); % Immature Granulocytes 4.6 % (0-0.5); % Lymphocytes 18.4 % (20.5-51.1); % Monocytes 6.7 % (1.7-9.3); % Neutrophils 65.6 % (42.2-75.2); Absolute Eosinophils 0.2 10^3/uL (0-0.7); Absolute Immature Granulocytes 0.3 10^3/uL (0-0.05); Absolute Lymphocytes 1.1 10^3/uL (1.2-3.4); Absolute Monocytes 0.4 10^3/uL (0.1-0.6); Absolute Neutrophils 3.7 10^3/uL (1.4-6.5); Hematocrit 26.3 % (37.0-47.0); Hemoglobin 8.4 g/dL (12.0-16.0); Mean Corp Hgb Conc. 31.9 g/dL (33.0-37.0); Mean Corpuscular Hgb 27.5 pg (27.0-31.0); Mean Corpuscular Volume 86.2 fL (81.0-99.0); Mean Platelet Volume 8.6 fL (7.4-10.4); Nucleated Red Blood Cells % 0 %; Platelet Count 328 10^3/uL (130-400); Red Blood Cell Count 3.05 10^6/uL (4.20-5.40); Red Cell Dist. Width 15.4 % (11.5-14.5); White Blood Cell Count 5.7 10^3/uL (4.8-10.8)
[2024-07-31 08:13] LABS: Glucose - Point of Care 178 mg/dl (70-99)
[2024-07-31 08:27] LABS: ALT (SGPT) 18 U/L (0-35); AST (SGOT) 16 U/L (14-36); Alkaline Phosphatase 329 U/L (38-126); Blood Urea Nitrogen 31 mg/dl (7-17); Calcium 9.1 mg/dl (8.4-10.2); Carbon Dioxide 24 mmol/L (22-30); Chloride 109 mmol/L (98-107); Estimated Creatinine Clearance 41 ml/min; Glucose 170 mg/dl (70-99); Potassium 4.1 mmol/L (3.5-5.1); Sodium 142 mmol/L (135-145); Total Bilirubin 0.4 mg/dl (0.2-1.3); Total Protein 6.7 g/dl (6.3-8.2); eGFR 26.64
[2024-07-31] MEDS: CYMBALTA DELAYED RELEASE 90 MG PO (09:31)
[2024-07-31] MEDS: LAMICTAL 150 MG PO (09:31)
[2024-07-31] MEDS: VITAMIN B-12 100 MCG PO (09:31)
[2024-07-31] MEDS: LIPITOR 20 MG PO (09:32)
[2024-07-31] MEDS: THERAGRAN 1 TABLET PO (09:32)
[2024-07-31] MEDS: KEPPRA 500 MG PO (09:32)
[2024-07-31] MEDS: DESENEX/MITRAZOL/ZEASORB 1 APPLIC TOPICAL (09:32)
[2024-07-31] MEDS: HEPARIN 5000 UNITS SC (09:32)
[2024-07-31] MEDS: NOVOLOG FLEXPEN-LOW RESISTANCE 1 UNITS SC ×2 (09:36→12:47)
[2024-07-31] MEDS: LAC HYDRIN, AM LACTIN LOTION 1 APPLIC TOPICAL (09:36)
[2024-07-31] MEDS: NEURONTIN 200 MG PO ×2 (09:37→15:19)
[2024-07-31] MEDS: ProAmatine PO ×3 (09:37→17:38)
[2024-07-31] MEDS: VIBRAMYCIN 100 MG PO (09:37)
--- NOTE | 2024-07-31 10:33 | W.PN.ID1 ---
Date of Service
Date of Service: July 31, 2024
Today's Communication
Can transition to Augmentin 875mg po bid and doxycycline 100mg po bid through 08/07/24.
ID will sign off.
Assessment / Plan
# Acute RLE non-purulent cellulitis, improving.
# LLE pneumonia
# KIRAN on CKD3b, improving
# Hypotension resolved
-Bcx's x 2 neg to date
-MRSA screen negative
- Can transition ceftriaxone/doxycycline to Augmentin 875mg po bid and doxycycline 100mg po bid through 08/07/24.
- Continue Darshan-wrap compression RLE.
# DM -uncontrolled
- Tight glucose control.
ID will sign off
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
Type 2 diabetes
Hypertension
Heart failure
CKD 3B
Conversion disorder/depression/seizures
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
Overactive bladder with suprapubic catheter
Class III obesity BMI 50
Sleep apnea not compliant with CPAP
Bedbound status
Chief Complaint
-: Pneumonia and Cellulitis
Subjective / Review of Systems
Feels much improved.
Vital Signs / Physical Exam
Vital Signs
Vital Signs
Temp Pulse Resp BP Pulse Ox
98.4 F 88 20 141/51 94
07/31/24 07:27 07/31/24 07:27 07/31/24 07:27 07/31/24 07:27 07/31/24 07:27
Physical Exam
Constitutional: No Acute Distress and Comfortable
Cardiovascular: Regular Rate and S1/S2
Pulmonary: Coarse (left base)
Gastrointestinal: Soft, Non Distended and Normal Bowel Sounds
Extremities: Edema (RLE improving) and Erythema (posterior leg erythema resolving; distal anterior carmona erythema decreased)
Neurological: AO x 3
Objective Data
Lab Data
Lab Results
07/31/24 06:55
07/31/24 06:55
Estimated Creat Clear 41 ml/min 07/31/24 06:55
Lactic Acid Cancelled 07/26/24 17:45
Total Bilirubin 0.4 mg/dl (0.2-1.3) 07/31/24 06:55
AST 16 U/L (14-36) 07/31/24 06:55
ALT 18 U/L (0-35) 07/31/24 06:55
Alkaline Phosphatase 329 U/L (38-126) H 07/31/24 06:55
Most recent labs reviewed.
Micro Results:
07/26/24 13:52 Blood Culture - Preliminary
Blood/Venous No Growth in 4 days- Final report to follow
07/26/24 13:50 Blood Culture - Preliminary
Blood/Venous No Growth in 4 days- Final report to follow
07/26/24 16:43 Urine Culture - Final
Urine
07/26/24 22:10 MRSA Screen - Final
Nose No Methicillin Resistant Staphylococcus aureus isolated.
07/26/24 16:43 Legionella Urinary Antigen - Final
Urine Negative for Legionella pneumophila Serogroup 1 antigen.
A negative result does not rule out the possiblity of
Legionella infection due to other serogroups or species of
Legionella. Clinical correlation is recommended.
Streptococcus pneumoniae Antigen (M - Final
Negative for Streptococcus pneumoniae antigen.
A negative result does not exclude infection with
Streptococcus pneumoniae. Clinical correlation is
recommended.
07/26/24 CT a/p: Large dense left lower lobe airspace consolidation containing air bronchograms.
Care Review
Plan reviewed with: Physician (Dr. Annabelle Langford)
--- NOTE | 2024-07-31 11:24 | CM ---
Per hospitalist, patient is stable for d/c today. Patient is LTC at [facility].
Met w/ patient bedside, happy to d/c as she expressed she misses her friends
Spoke w/ Mary Jane/[facility], confirmed patient can return today
IMM verbally reviewed, copy given to patient, copy on chart
Ambulance forms on chart
[facility]
Report: [phone]

Plan: Return to [facility] today. Ambulance transport
[2024-07-31 12:01] LABS: Glucose - Point of Care 181 mg/dl (70-99)
--- NOTE | 2024-07-31 12:24 | W.PN.HOSP.TC ---
Today's Communication/Plan
-
d/c back to [place]
Assessment / Plan
Assessment / Plan
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
occasionally, neurogenic bladder with chronic suprapubic catheter, chronic CHF, ? stage III CKD, GERD, conversion disorder/depression/seizures, sleep apnea noncompliant with CPAP who presented to the ED on July 26 due to hypotension, weakness, and
dry cough. Found to be lethargic.
#Septic shock - Resolved
# Mild toxic encephalopathy from septic shock - improved
# Right leg cellulitis versus UTI
- Patient required Levophed support weaned off of it blood pressure stable
- Possible source of right lower extremity cellulitis versus UTI
- Chest x-ray reviewed and left lower lobe pneumonia is questionable, possibly atelectatic in nature. Patient not complaining any dyspnea/cough
- Blood cs neg. legionella/strep neg.
- Urine culture remains negative
- ID following and help appreciated. Patient on Rocephin and doxycycline
- Continue leg elevation/rosa isela wrap as tolerated for RLE
#Acute renal failure on suspected CKD Stage 3b
Neurogenic bladder
- Could be post obstructive as suprapubic catheter was clogged on admission
- Creatinine continues to trend down
- Records to be obtained from [facility]
- Urology unable to replace suprapubic catheter either, a Chauhan catheter was placed instead.
#Normocytic anemia
- Checked type and screen
- Blood consent obtained in the ER and scanned in chart on 07/26/24
- ER obtaining records from [facility]
- Continue B12 100 mcg p.o. every 48 hours
#Acute on chronic CHF-likely diastolic
- Patient required IV fluid hydration during the admission
- Not on any diuretics based on intermediate medication list
- Renal function remains elevated
#Chronic indwelling suprapubic catheter secondary to neurogenic bladder
- In ER was unable to exchange suprapubic catheter
- ER spoke with on-call urology recommended placing urethral Chauhan catheter
- Urethral catheter placed on admission w/ satisfactory UOP
- Maintain urethral catheter to drainage on discharge
- Catheter changes q4 weeks @[facility]
- If replacement of SPT desired - will need outpatient urology F/U and discussion of cystoscopy/SPT replacement given anatomical challenges
#Type 2 Diabetes Mellitus
- Continue Accu-Cheks with SSI, checked HgbA1c 8.2%
Hypertension
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
Conversion disorder with seizures/convulsions
Depression -Continue duloxetine 90 mg daily, Lamictal 150 mg p.o. twice daily, Keppra 500 mg p.o. every 12 hours -Continue Ativan 0.5 mg p.o. twice daily hold for extreme lethargy
History of Cognitive Communication Deficit
History of Aphasia
Chronic bedbound status uses slide board to transfer to wheelchair occasionally
GERD
Mild hepatosplenomegaly on CT imaging
Mild to moderate right inguinal lymphadenopathy on CT
Hyperlipidemia - Continue atorvastatin 20 mg daily
Sleep apnea - Noncompliant with CPAP
Insomnia
Muscle Weakness History
History of Osteomyelitis
Morbid Obesity
DVT Prophylaxis: Heparin Subq
Code Status: DNR (confirmed with patient -- patient had full decision-making capacity and confirmed DNR status on 07/27/24)
More than 30 minutes spent in discharge including
Final examination of the patient
Summarizing hospital stay
Instructions for continuing care to all relevant caregivers
Preparation of discharge records, prescriptions, and referral forms
Total time spent (in minutes): 38 mins
Anticipated Discharge: Today
Subjective/Interval History
-
Date of Service: July 31, 2024
feeling better
no issues overnight
Objective Data
-
Labs:
Laboratory Results
07/31/24
06:55
WBC 5.7
Hgb 8.4 L
Hct 26.3 L
Plt Count 328
Sodium 142
Potassium 4.1
Chloride 109 H
Carbon Dioxide 24
BUN 31 H
Creatinine 2.1 H
Glucose 170 H
Calcium 9.1
Total Bilirubin 0.4
AST 16
ALT 18
Alkaline Phosphatase 329 H
Vital Signs:
Vital Signs
Temp Pulse Resp BP Pulse Ox
98.4 F 88 20 141/51 94
07/31/24 07:27 07/31/24 07:27 07/31/24 07:27 07/31/24 07:27 07/31/24 07:27
I&O
07/30/24 07/31/24 08/01/24
06:59 06:59 06:59
Intake Total 720 / 720 1800 / 1800
Output Total 2300 / 2300 2100 / 2100
Balance -1580 / -1580 -300 / -300
Review of Systems
-
Respiratory: Reports No Symptoms
Cardiac: Reports No Symptoms
Abdomen/GI: Reports No Symptoms
Physical Exam
-
General: Comfortable and Morbidly Obese
HEENT: Negative Oxygen
Genito-urinary: Chauhan
Musculoskeletal: Edema, Right Lower Extrem (erythema behind thigh and lower leg)
Neuro: Awake, Alert, Oriented, No Motor Deficits and Nonfocal/Grossly Intact
Psych: Calm
[2024-07-31 14:29] VITALS: BP 148/64
[2024-07-31] MEDS: ROCEPHIN 2000 MG IV (15:19)
[2024-07-31] MEDS: STERILE WATER FOR INJECTION 20 ML IV (15:19)
[2024-07-31 15:24] VITALS: BP 170/71
[2024-07-31 17:08] LABS: Glucose - Point of Care 214 mg/dl (70-99)
[2024-07-31] MEDS: NOVOLOG FLEXPEN-LOW RESISTANCE 2 UNITS SC (17:38)
--- NOTE | 2024-07-31 17:49 | PTCARENOTE ---
Attemted to give report to [facility]. [facility] staff at [facility] has hanged up in the middle of a report.
== END 2024-07-31 18:45 | DRG 871 ==
LOC: 4 EAST ACU 17:44
PROVIDERS: Clinical Nurse Specialist Family Health; Physician Assistant; ADMITTING PHYSICIAN Hospitalist; ATTENDING PHYSICIAN Hospitalist; CONSULT PHYSICIAN Internal Medicine Infectious Disease; CONSULT PHYSICIAN Surgery; EMERGENCY PHYSICIAN Emergency Medicine
DX: A41.9 Sepsis, unspecified organism (principal); G92.9 Unspecified toxic encephalopathy; I50.33 Acute on chronic diastolic (congestive) heart failure; J18.9 Pneumonia, unspecified organism; R65.21 Severe sepsis with septic shock; T83.020A Displacement of cystostomy catheter, initial encounter; N39.0 Urinary tract infection, site not specified; L03.115 Cellulitis of right lower limb; Z68.43 Body mass index [BMI] 50.0-59.9, adult; N17.9 Acute kidney failure, unspecified; I13.0 Hypertensive heart and chronic kidney disease with heart failure and stage 1 through stage 4 chronic kidney disease, or unspecified chronic kidney disease; E11.22 Type 2 diabetes mellitus with diabetic chronic kidney disease; N18.32 Chronic kidney disease, stage 3b; F44.5 Conversion disorder with seizures or convulsions; Z99.3 Dependence on wheelchair; Z74.01 Bed confinement status; N32.81 Overactive bladder; F32.A Depression, unspecified; G47.30 Sleep apnea, unspecified; N31.9 Neuromuscular dysfunction of bladder, unspecified; Y73.8 Miscellaneous gastroenterology and urology devices associated with adverse incidents, not elsewhere classified; K21.9 Gastro-esophageal reflux disease without esophagitis; E78.5 Hyperlipidemia, unspecified; Z66 Do not resuscitate; Z91.199 Patient's noncompliance with other medical treatment and regimen due to unspecified reason; D64.9 Anemia, unspecified; G47.00 Insomnia, unspecified; Z79.4 Long term (current) use of insulin; Z79.899 Other long term (current) drug therapy; Z89.512 Acquired absence of left leg below knee; Z93.59 Other cystostomy status; E66.01 Morbid (severe) obesity due to excess calories
CPT/HCPCS: 51702; 71045; 74176; 80053; 80202; 81003; 81015; 82607; 82728; 82746; 82962; 83036; 83540; 83550; 83605; 83735; 84100; 84145; 85014; 85018; 85025; 86850; 86900; 86901; 87040; 87070; 87086; 87449; 87899; 94640; 96361; 96365; 96366; 96367; 96375; 97162; 97530; 99285